=== PATIENT | female | born 1965 | race Caucasian/White ===

== ENCOUNTER 2016-03-12 11:34 | Emergency (ER) | payer OTHER ==
[~2016-03-12] VITALS: Ht 160 cm; Wt 88.7 kg
[~2016-03-12 11:34] MED LIST: ASPI81TA57 PO; FURO-85 PO; PRT/40 PO
[2016-03-12 11:40] VITALS: TEMP 36.9; Ht 160 cm; Wt 88.7 kg
[2016-03-12] MEDS ORDERED: PRLSR20 PO (11:47)
[2016-03-12] MEDS ORDERED: NORT10CA4 PO (11:48)
[2016-03-12 12:40] LABS: BASO % 0.4 %; BASO ABS # 0.03 K/uL (0-0.2); COMPLETE YES; EOS % 2.2 %; HEMATOCRIT 44.5 % (37-47); IG% 0.1 %; LYMPH ABS # 2.23 K/uL (1.2-3.4); MEAN CORPUSCULAR HEMOGLOBIN 31.2 pg (25-34); MEAN CORPUSCULAR HGB CONC 35.1 g/dl (32-36); MEAN PLATELET VOLUME 10.5 fL (7.4-10.4); MONO % 5.7 %; NEUT % 61.6 %; PLATELET COUNT 225 K/uL (130-400); WHITE BLOOD COUNT 7.43 K/uL (4.8-10.8)
[2016-03-12] MEDS ORDERED: SODIUM CHLORIDE 0.9% 1000ML 1,000 ML IV STA ×3 (12:44→15:38)
[2016-03-12] MEDS ORDERED: PROMETHAZINE HCL INJ 25 MG in SODIUM CHLORIDE 0.9% 50ML 50 ML IV STA (12:44)
[2016-03-12] MEDS ORDERED: HYDROmorphone INJ 1 MG/ML SYR IV PRN (12:45)
[2016-03-12 12:57] LABS: BUN/CREATININE RATIO 20.3 (10-20); CALCIUM 9.4 mg/dl (8.5-10.1); CREATININE 0.87 mg/dl (0.60-1.20); POTASSIUM 3.5 mmol/L (3.5-5.1)
[2016-03-12] MEDS ORDERED: OPTIRAY 320 IV PRN (13:00)
--- NOTE | 2016-03-12 14:11 | DIAGNOSTIC IMAGING REPORT ---
CT SCAN OF THE ABDOMEN AND PELVIS WITH IV CONTRAST CLINICAL HISTORY: Lower abdominal pain. Vomiting and diarrhea. COMPARISON STUDY: Abdominal CT dated 11/26/2014, 05/10/2014, and 06/05/2012. TECHNIQUE: Following the IV administration of 92 cc of Optiray 320, CT scan of the abdomen and pelvis is performed from the lung bases to the proximal femora. Images are reviewed in the axial, sagittal, and coronal planes. IV contrast was administered without complication. Automated dose control exposure was utilized. CT DOSE: 1261.84 mGycm FINDINGS: Lung bases: The heart is normal in size and without pericardial effusion. Small calcified granulomas are noted at the lung bases. There is dependent atelectasis. No airspace consolidation or pleural effusion is seen. A 2 mm noncalcified nodule at the left lung base as seen on image #77. There are calcified mediastinal and hilar lymph nodes partially visualized. A tiny hiatal hernia is identified. Liver: The contrast-enhanced liver is normal in size, contour, and attenuation. There is mild central intrahepatic biliary ductal dilatation. A 7 mm low-attenuation lesion in the left lobe and a 11 mm low-attenuation lesion in the right lobe are unchanged from prior studies. These likely represent small hemangiomas but are incompletely characterized. The hepatic veins and portal veins are patent. Gallbladder: Surgically absent noting clips in the gallbladder fossa. Spleen: Normal in size and attenuation. Pancreas: Moderately atrophic. Adrenal glands: Unremarkable. Kidneys: The contrast enhanced kidneys demonstrate mild cortical atrophy and are without hydronephrosis. The kidneys enhance symmetrically. Abdominal vasculature: The abdominal aorta is normal in course and caliber noting moderate to advanced atherosclerotic calcification. Bowel: The small bowel and colon are normal in course and caliber. The appendix is not identified and reported surgically absent. Peritoneum: There is no intraperitoneal free air or abdominal ascites. There is a small fat-containing umbilical hernia. Lymphadenopathy: None. Pelvic viscera: The bladder is normal as visualized. The uterus is surgically absent. No adnexal lesion is seen. Skeletal structures: The skeletal structures are osteopenic. There is mild lumbosacral spondylosis. No lytic or blastic lesions are seen. Mild sclerotic change is seen involving the sacroiliac joints. IMPRESSION: 1. There are no acute infectious or inflammatory findings in the abdomen or pelvis. 2. Additional findings as above. Electronically signed by: Tesfaye Brannon M.D. 03/12/2016 2:09 PM Dictated Date/Time: 03/12/2016 2:00 PM
[2016-03-12] MEDS ORDERED: RMR15 PO (14:12)
[2016-03-12] MEDS ORDERED: HYDR25CA PO (14:12)
[2016-03-12] MEDS ORDERED: GABA-113 PO (14:12)
[2016-03-12] MEDS ORDERED: QUET1TAB32 PO (14:12)
[2016-03-12] MEDS ORDERED: TOPI100T34 PO (15:38)
[2016-03-12] MEDS ORDERED: VENL150T33 PO (15:38)
[2016-03-12] MEDS ORDERED: QUET1TAB11 PO (15:38)
[2016-03-12] MEDS ORDERED: TOPI50TA16 PO (15:59)
[2016-03-12 16:01] LABS: URINE APPEARANCE CLEAR (CLEAR); URINE BILIRUBIN NEG (NEG); URINE COLOR YELLOW; URINE NITRITE NEG (NEG); URINE SPECIFIC GRAVITY > 1.045 (1.000-1.030); UROBILINOGEN NEG (NEG); ZZUR CULT IF INDIC CLEAN CATCH NO
[2016-03-12 16:04] LABS: MANUAL MICROSCOPIC REQUIRED? NO; REVIEW REQ? NO
[2016-03-12] MEDS ORDERED: OXYCODONE IR HOME PACK PO ONE (17:45)
[2016-03-12] MEDS ORDERED: PHENERGAN 25MG HOMEPACK PO ONE (17:45)
[2016-03-12 18:31] VITALS: BP 143/100; PULSE 69; O2SAT 95
[2016-03-12] MEDS ORDERED: BUSP15TA70 PO (19:18)
[2016-03-12] MEDS ORDERED: IPRASOL4 INH (19:25)
[2016-03-12] MEDS ORDERED: TRAZ50TA35 PO (19:50)
[2016-03-12] MEDS ORDERED: MULT-506 PO (19:51)
[2016-03-12] MEDS ORDERED: IPRA1AER2 INH (20:20)
[2016-03-12] MEDS ORDERED: ATOR-22 PO (20:20)
[2016-03-12] MEDS ORDERED: ALPR-411 PO ×2 (20:33)
--- NOTE | 2016-03-12 20:50 | EMERGENCY ROOM VISIT NOTE ---
History Report prepared by Cristobalibblair: Darcy Cole Under the Supervision of: Dr. Michael Miguel M.D. First contact with patient: 12:12 Chief Complaint: ABDOMINAL PAIN Stated Complaint: STOMACH PAIN AND GENITALS History of Present Illness The patient is a 51 year old female who presents to the Emergency Room with complaints of persistent diffuse abdominal pain that began this morning. Her discomfort is an 8/10 in severity. Her pain is worst in the lower abdomen just above her pubic bone. The patient notes that she developed nausea, vomiting, and diarrhea 3 days ago. This morning when she got up, she had difficulty walking and sitting due to her abdominal pain. She denies any unusual colored bowel movements. The patient has been able to eat some crackers since Tuesday but has not been able to keep any other food down, as her GI symptoms have yet to resolve. Currently, she complains of feeling weak. She has a history of a hysterectomy, cholecystectomy, and appendectomy. The patient was recently on a Z -Andres and Clindamycin for a dental abscess. The patient called her doctor, Dr. Humphreys, who referred her to the ER. Pt denies LOC, headache, fevers, chills, diaphoresis, visual changes, neck pain, chest pain, breathing difficulties, back pain, melena, hematochezia, urinary symptoms, numbness, lymphadenopathy, rash, or other complaints. Source of History: patient Onset: this morning Position: abdomen Timing: other (persistent) Modifying Factors (Worsening): other (walking, sitting up) Associated Symptoms: + diarrhea, + nausea, + vomiting, + weakness Review of Systems See HPI for pertinent positives and negatives. A total of ten systems were reviewed and were otherwise negative. Past Medical & Surgical Medical Problems: (1) Anxiety (2) COPD, moderate (3) Depression (4) Dyslipidemia (5) HTN (hypertension) (6) IBS (irritable bowel syndrome) Surgical Problems: (1) S/P appendectomy (2) S/P cholecystectomy (3) S/P laparoscopy (4) S/P total hysterectomy and BSO (bilateral salpingo-oophorectomy) Family History Diabetes mellitus FH: heart disease Social History Smoking Status: Current Every Day Smoker Alcohol Use: none Drug Use: marijuana Marital Status: single Housing Status: lives alone Occupation Status: unemployed Current/Historical Medications Scheduled Alprazolam (Xanax), 0.5 MG PO HS Alprazolam (Xanax), 0.5 MG PO PRN UD Atorvastatin (Lipitor), 10 MG PO DAILY Buspirone Hcl (Buspar), 20 MG PO TID Calcium Carbonate-Cholecalcife (Caltrate 600+D), 1 TAB PO DAILY Gabapentin (Neurontin), 300 MG PO BID Hydroxyzine Pamoate (Vistaril), 1 CAP PO HS Lisinopril (Prinivil), 5 MG PO DAILY Mirtazapine (Mirtazapine), Unknown Dose PO HS Multivitamin (Multivitamin), 1 TAB PO DAILY Nortriptyline HCl (Nortriptyline HCl), 10 MG PO DAILY Omeprazole (Prilosec), 40 MG PO DAILY Quetiapine Fumarate (Seroquel), 300 MG PO HS Quetiapine Fumarate (Seroquel), 50 MG PO HS Topiramate (Topamax), 100 MG PO BID Topiramate (Topamax), 50 MG PO BID Trazodone Hcl (Trazodone), 100 MG PO HS Venlafaxine Hcl (Venlafaxine Hcl Er), 150 MG PO DAILY Scheduled PRN Ipratropium-Albuterol (Duoneb), 1 TREATMENT INH QID PRN for SOB/Wheezing Ipratropium-Albuterol (Combivent Respimat), 1 PUFFS INH QID PRN for SOB/Wheezing Allergies Coded Allergies: Amoxicillin (Verified Allergy, Severe, unknown, 10/06/15) Clavulanic Acid (Verified Allergy, Severe, unknown, 10/06/15) Tetracyclines (Verified Allergy, Unknown, DOXYCYCLINE, 10/06/15) Morphine (Verified Adverse Reaction, Unknown, stomach cramps, 10/06/15) Physical Exam Vital Signs Date Time Temp Pulse Resp B/P Pulse Ox O2 Delivery O2 Flow Rate FiO2 03/12/16 18:31 69 17 143/100 95 03/12/16 18:14 69 17 143/100 95 Room Air 03/12/16 16:26 79 18 153/92 97 Room Air 03/12/16 14:24 70 131/93 97 Room Air 03/12/16 13:07 86 16 134/87 97 Room Air 03/12/16 11:40 36.9 94 18 159/128 97 Room Air Physical Exam GENERAL: Awake, alert, uncomfortable appearing, in no acute distress HEAD: Normocephalic, atraumatic. No edema. EYES: Normal conjunctiva. Sclera non-icteric. OROPHARYNX: Dry mucous membranes; otherwise, lips, tongue, and mucosa unremarkable. No erythema or exudate. NECK: Supple. No nuchal rigidity. FROM. No adenopathy. RESPIRATORY: CTA bilaterally. No wheezes rales or rhonchi. CARDIAC: Borderline tachycardic rate, normal rhythm. ABDOMEN: Soft, non distended. Diffuse abdominal tenderness to palpation but worse in the lower quadrants. No rebound or guarding. MUSCULOSKELETAL: Atraumatic. No edema. NEURO: Normal sensorium. SKIN: No rash or jaundice noted Medical Decision & Procedures ER Provider Diagnostic Interpretation: Radiology results as stated below per my review and radiologist interpretation. CT SCAN OF THE ABDOMEN AND PELVIS WITH IV CONTRAST CLINICAL HISTORY: Lower abdominal pain. Vomiting and diarrhea. COMPARISON STUDY: Abdominal CT dated 11/26/2014, 05/10/2014, and 06/05/2012. TECHNIQUE: Following the IV administration of 92 cc of Optiray 320, CT scan of the abdomen and pelvis is performed from the lung bases to the proximal femora. Images are reviewed in the axial, sagittal, and coronal planes. IV contrast was administered without complication. Automated dose control exposure was utilized. CT DOSE: 1261.84 mGycm FINDINGS: Lung bases: The heart is normal in size and without pericardial effusion. Small calcified granulomas are noted at the lung bases. There is dependent atelectasis. No airspace consolidation or pleural effusion is seen. A 2 mm noncalcified nodule at the left lung base as seen on image #77. There are calcified mediastinal and hilar lymph nodes partially visualized. A tiny hiatal hernia is identified. Liver: The contrast-enhanced liver is normal in size, contour, and attenuation. There is mild central intrahepatic biliary ductal dilatation. A 7 mm low-attenuation lesion in the left lobe and a 11 mm low-attenuation lesion in the right lobe are unchanged from prior studies. These likely represent small hemangiomas but are incompletely characterized. The hepatic veins and portal veins are patent. Gallbladder: Surgically absent noting clips in the gallbladder fossa. Spleen: Normal in size and attenuation. Pancreas: Moderately atrophic. Adrenal glands: Unremarkable. Kidneys: The contrast enhanced kidneys demonstrate mild cortical atrophy and are without hydronephrosis. The kidneys enhance symmetrically. Abdominal vasculature: The abdominal aorta is normal in course and caliber noting moderate to advanced atherosclerotic calcification. Bowel: The small bowel and colon are normal in course and caliber. The appendix is not identified and reported surgically absent. Peritoneum: There is no intraperitoneal free air or abdominal ascites. There is a small fat-containing umbilical hernia. Lymphadenopathy: None. Pelvic viscera: The bladder is normal as visualized. The uterus is surgically absent. No adnexal lesion is seen. Skeletal structures: The skeletal structures are osteopenic. There is mild lumbosacral spondylosis. No lytic or blastic lesions are seen. Mild sclerotic change is seen involving the sacroiliac joints. IMPRESSION: 1. There are no acute infectious or inflammatory findings in the abdomen or pelvis. 2. Additional findings as above. Electronically signed by: Tesfaye Brannon M.D. 03/12/2016 2:09 PM Dictated Date/Time: 03/12/2016 2:00 PM Laboratory Results 03/12/16 12:05 Red Blood Count 5.00, Mean Corpuscular Volume 89.0, Mean Corpuscular Hemoglobin 31.2, Mean Corpuscular Hemoglobin Concent 35.1, Mean Platelet Volume 10.5, Neutrophils (%) (Auto) 61.6, Lymphocytes (%) (Auto) 30.0, Monocytes (%) (Auto) 5.7, Eosinophils (%) (Auto) 2.2, Basophils (%) (Auto) 0.4, Neutrophils # (Auto) 4.58, Lymphocytes # (Auto) 2.23, Monocytes # (Auto) 0.42, Eosinophils # (Auto) 0.16, Basophils # (Auto) 0.03 03/12/16 12:05 Test 03/12/16 00:00 03/12/16 12:05 Urine Color YELLOW Urine Appearance CLEAR (CLEAR) Urine pH 6.0 (4.5-7.5) Urine Specific Nordman > 1.045 (1.000-1.030) Urine Protein NEG (NEG) Urine Glucose (UA) NEG (NEG) Urine Ketones NEG (NEG) Urine Occult Blood NEG (NEG) Urine Nitrite NEG (NEG) Urine Bilirubin NEG (NEG) Urine Urobilinogen NEG (NEG) Urine Leukocyte Esterase NEG (NEG) Urine Test NEG (NEG) White Blood Count 7.43 K/uL (4.8-10.8) Red Blood Count 5.00 M/uL (4.2-5.4) Hemoglobin 15.6 g/dL (12.0-16.0) Hematocrit 44.5 % (37-47) Mean Corpuscular Volume 89.0 fL (80-100) Mean Corpuscular Hemoglobin 31.2 pg (25-34) Mean Corpuscular Hemoglobin Concent 35.1 g/dl (32-36) Platelet Count 225 K/uL (130-400) Mean Platelet Volume 10.5 fL (7.4-10.4) Neutrophils (%) (Auto) 61.6 % Lymphocytes (%) (Auto) 30.0 % Monocytes (%) (Auto) 5.7 % Eosinophils (%) (Auto) 2.2 % Basophils (%) (Auto) 0.4 % Neutrophils # (Auto) 4.58 K/uL (1.4-6.5) Lymphocytes # (Auto) 2.23 K/uL (1.2-3.4) Monocytes # (Auto) 0.42 K/uL (0.11-0.59) Eosinophils # (Auto) 0.16 K/uL (0-0.5) Basophils # (Auto) 0.03 K/uL (0-0.2) RDW Standard Deviation 43.6 fL (36.4-46.3) RDW Coefficient of Variation 13.4 % (11.5-14.5) Immature Granulocyte % (Auto) 0.1 % Immature Granulocyte # (Auto) 0.01 K/uL (0.00-0.02) Anion Gap 10.0 mmol/L (3-11) Est Creatinine Clear Calc Drug Dose 80.8 ml/min Estimated GFR () 89.4 Estimated GFR (Non- 77.1 BUN/Creatinine Ratio 20.3 (10-20) Calcium Level 9.4 mg/dl (8.5-10.1) Total Bilirubin 0.6 mg/dl (0.2-1) Direct Bilirubin 0.1 mg/dl (0-0.2) Aspartate Amino Transf (AST/SGOT) 35 U/L (15-37) Alanine Aminotransferase (ALT/SGPT) 92 U/L (12-78) Alkaline Phosphatase 107 U/L (45-117) Total Protein 7.5 gm/dl (6.4-8.2) Albumin 3.8 gm/dl (3.4-5.0) Lipase 164 U/L (73-393) Date/Time Source Procedure Growth Status 03/12/16 13:15 Stool C.difficile Toxin B Gene (PCR) - Final No C. difficile toxin B gene detected Complete Laboratory results reviewed by me Medications Administered Medications (Trade) Dose Ordered Sig/Alvarez Route Start Time Stop Time Status Last Admin Dose Admin Promethazine HCl 25 mg/Sodium Chloride 51 ml @ 204 mls/hr NOW STAT IV 03/12/16 12:44 03/12/16 12:58 DC 03/12/16 13:30 204 MLS/HR Sodium Chloride 1,000 ml @ 999 mls/hr Q1H1M STAT IV 03/12/16 12:44 03/12/16 13:44 DC 03/12/16 13:06 999 MLS/HR Sodium Chloride (Nss 1000ml) 1,000 ml @ 125 mls/hr Q8H STAT IV 03/12/16 12:44 03/12/16 18:43 DC 03/12/16 15:04 125 MLS/HR Hydromorphone HCl 1 mg 1 mg Q15M PRN IV 03/12/16 12:45 03/12/16 18:43 DC 03/12/16 13:07 1 MG Sodium Chloride (Nss 1000ml) 1,000 ml @ 999 mls/hr Q1H1M STAT IV 03/12/16 15:38 03/12/16 16:38 DC 03/12/16 15:50 999 MLS/HR Oxycodone HCl (Roxicodone Immediate Rel 5MG Home Pack) 1 homepack UD ONCE PO 03/12/16 17:45 03/12/16 17:46 DC 03/12/16 17:52 1 HOMEPACK Promethazine HCl (Phenergan 25MG Home Pack) 1 homepack UD ONCE PO 03/12/16 17:45 03/12/16 17:46 DC 03/12/16 17:52 1 HOMEPACK ED Course 1243: The patient was evaluated in room A4B. A complete history and physical exam was performed. 1244: Ordered NSS 1000 ml @ 125 mls/hr IV, NSS 1000 ml @ 999 mls/hr IV, Promethazine HCl 25 mg/NSS 51 ml @ 204 mls/hr IV, Dilaudid Inj 1 mg IV. 1538: Ordered NSS 1000 ml @ 999 mls/hr IV. 1540: I reassessed the patient. She was feeling better. 1725: I reevaluated the patient. She was resting comfortably. Discussed results and discharge instructions: She verbalized understanding and agreement. The patient is ready for discharge. 1745: Ordered Promethazine HCl 1 homepack PO, Oxycodone HCl 1 homepack PO. Medical Decision Triage Nursing notes reviewed. The patient's presentation and history were concerning for nausea, vomiting, diarrhea and abdominal pain. Etiologies such as gastroenteritis, food borne illness, infections, obstruction , pancreatitis, appendicitis, diverticulitis, inflammatory bowel disease, GI bleed, biliary pathology, toxicologic as well as others were entertained. The patient was evaluated. She had lower abdominal discomfort. In the stated complaints of pain in the stomach and genitals. The patient specifically met in the suprapubic area. She has a history of hysterectomy, appendectomy and cholecystectomy. The patient was treated with IV Phenergan, normal saline, and Dilaudid. On reassessment she felt better. She still having difficulty obtaining a urine sample so the patient was given additional normal saline. The patient's CBC was unremarkable. Chem panel revealed dehydration. LFTs and lipase were unremarkable. Slight elevation of AST. CT was negative. C. difficile testing was negative. Stool culture is pending. Urinalysis was done and was unremarkable. I discussed the findings with the patient. On final assessment she was doing much better. Conservative management was discussed and the patient was in agreement. She felt comfortable with discharge and close outpatient follow-up. I suspect the patient has a gastroenteritis-like illness with some dehydration and can follow-up safely as an outpatient. By the evaluation outlined above other emergent etiologies such as those listed in the differential, as well as others, were deemed relatively unlikely. The patient was informed about the findings as listed above. All questions were answered and she was pleased with the treatment. Return instructions were outlined and the patient was discharged in stable condition. The patient was referred to her PCP for follow-up for a recheck of the current condition. The chart was completed utilizing [employer] voice recognition software. Grammatical errors, random word insertions, pronoun errors, and incomplete sentences are an occasional consequence of this system due to software limitations, ambient noise, and hardware issues. Any formal questions or concerns about the content, text, or information contained within the body of this dictation should be directly addressed to the physician for clarification. [place] Drug Monitoring Program Search Results: patient reviewed within database, no issues identified Impression Primary Impression: Nausea, vomiting, and diarrhea Additional Impressions: Lower abdominal pain Dehydration Scribe Attestation The scribe's documentation has been prepared under my direction and personally reviewed by me in its entirety. I confirm that the note above accurately reflects all work, treatment, procedures, and medical decision making performed by me. Departure Information Dispostion Home / Self-Care Referrals Nestor Blanco M.D. (PCP) Forms Call Back Authorization, HOME CARE DOCUMENTATION FORM, IMPORTANT VISIT INFORMATION Patient Instructions My [facility] Additional Instructions ABDOMINAL PAIN INSTRUCTIONS: DO NOT drive, drink alcohol, operate machinery, or perform dangerous activities today. You were given medications in the ER that can affect your ability to safely function or operate a vehicle. Oxycodone (OxyIR) 5mg: Take 1-2 pills every four hours for breakthrough pain. Avoid alcohol, operating machinery or dangerous equipment, working on ladders or roofs, DRIVING, or situations where being under the influence may be dangerous. It is recommended to use an [id number] stool softener such as Colace, 100mg twice daily while taking this medication to avoid constipation. Ibuprofen(Motrin, Advil) may be used for fever or pain. Use 600mg every six hours as needed. Take with food. Avoid using more than 2400mg in a 24 hour period. Do not use 2400mg per day for more than three consecutive days without physician direction. Prolonged inappropriate use can lead to stomach upset or ulcers. (AND/OR) Acetaminophen(Tylenol) may be used for fever or pain. Use 1000mg every six hours as needed. Avoid using more than 4000mg in a 24 hour period. Phenergan(promethazine) tablets 25mg: Take one every six hours as needed for nausea. Avoid alcohol, operating machinery or dangerous equipment, working on ladders or roofs, DRIVING, or situations where being under the influence may be dangerous. Rest and drink plenty of fluids as tolerated. Slow sips of water or sports drinks are recommended instead of large amounts all at once. Continue current medications. Once your stomach is settled start with a clear liquid diet (jello, soup broth, etc.) and then advance as tolerated. You should avoid full, heavy meals for about 24 hrs from the time your symptoms resolved. Return to the ER immediately for worsening or persistent abdominal pain, vomiting, fevers, chest pains, difficulty breathing, black or bloody stools, worsening of your condition, or as needed. Follow up with your primary physician in 3 days for a recheck of your current condition. Problem Qualifiers
[2016-03-12] MEDS ORDERED: LISI-729 PO (21:30)
[2016-03-12] MEDS ORDERED: CALC-354 PO (22:21)
== END 2016-03-12 18:27 | disposition home or self-care (01) ==
LOC: C.EDB 11:38 → C.EDA 18:27
DX: R11.2 Nausea with vomiting, unspecified (principal); R19.7 Diarrhea, unspecified; R10.30 Lower abdominal pain, unspecified; E86.0 Dehydration; R91.1 Solitary pulmonary nodule; K44.9 Diaphragmatic hernia without obstruction or gangrene; K42.9 Umbilical hernia without obstruction or gangrene; J44.9 Chronic obstructive pulmonary disease, unspecified; F32.9 Major depressive disorder, single episode, unspecified; E78.5 Hyperlipidemia, unspecified; I10 Essential (primary) hypertension; M47.817 Spondylosis without myelopathy or radiculopathy, lumbosacral region; F17.200 Nicotine dependence, unspecified, uncomplicated; Z83.3 Family history of diabetes mellitus; Z82.49 Family history of ischemic heart disease and other diseases of the circulatory system

== ENCOUNTER 2016-12-28 18:11 | Emergency (ER) | payer OTHER ==
[~2016-12-28] VITALS: Ht 160 cm; Wt 94.0 kg
[~2016-12-28 18:11] MED LIST changes: +ALPR-411 PO; -ASPI81TA57 PO; +ATOR-22 PO; +BUSP15TA70 PO; +CALC-354 PO; -FURO-85 PO; +GABA-113 PO; +HYDR25CA PO; +IPRA1AER2 INH; +IPRASOL4 INH; +LISI-729 PO; +MULT-506 PO; +NORT10CA4 PO; +PRLSR20 PO; -PRT/40 PO; +QUET1TAB11 PO; +QUET1TAB32 PO; +RMR15 PO; +TOPI100T34 PO; +TOPI50TA16 PO; +TRAZ50TA35 PO; +VENL150T33 PO
[2016-12-28 18:15] VITALS: TEMP 37.1; Ht 160 cm; Wt 94.0 kg
[2016-12-28] MEDS: KETOROLAC TROMETHAMINE 60 MG/2 ML VIAL IM STA ×2 (18:29→20:22)
[2016-12-28] MEDS: ACETAMINOPHEN 500 MG TAB PO STA ×2 (18:29→20:20)
[2016-12-28] MEDS: TRAMADOL HCL 50 MG TAB PO STA ×2 (18:29→20:21)
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
--- NOTE | 2016-12-28 19:27 | DIAGNOSTIC IMAGING REPORT ---
R KNEE 4 OR MORE VIEWS CLINICAL HISTORY: Medial right knee pain. COMPARISON: Right knee radiographs April 02, 2015. FINDINGS: Alignment of the right knee is anatomic. No acute fracture or joint effusion is identified. There is mild osteophytosis within the right knee with preserved joint spaces. IMPRESSION: 1. No acute fracture or joint effusion of the right knee. 2. Mild osteoarthritis of the right knee. Electronically signed by: Jose Raul Cardona M.D. 12/28/2016 7:26 PM Dictated Date/Time: 12/28/2016 7:25 PM
[2016-12-28 20:43] VITALS: BP 138/103; PULSE 77; O2SAT 96
== END 2016-12-28 20:44 | disposition home or self-care (01) ==
LOC: C.EDB 18:12 → C.EDC 20:44
DX: M79.604 Pain in right leg (principal); M79.605 Pain in left leg; Z71.6 Tobacco abuse counseling; X50.0XXA Overexertion from strenuous movement or load, initial encounter; F31.9 Bipolar disorder, unspecified; F60.9 Personality disorder, unspecified; F41.9 Anxiety disorder, unspecified; J44.9 Chronic obstructive pulmonary disease, unspecified; E78.5 Hyperlipidemia, unspecified; I10 Essential (primary) hypertension; K58.9 Irritable bowel syndrome, unspecified; Z90.49 Acquired absence of other specified parts of digestive tract; Z90.710 Acquired absence of both cervix and uterus; G89.29 Other chronic pain; Z91.81 History of falling; F17.210 Nicotine dependence, cigarettes, uncomplicated; Z83.3 Family history of diabetes mellitus; F12.10 Cannabis abuse, uncomplicated; Z79.899 Other long term (current) drug therapy

== ENCOUNTER 2017-03-28 15:01 | Emergency (ER) | payer OTHER ==
[~2017-03-28] VITALS: Ht 371.6 cm; Wt 98.3 kg
[~2017-03-28 15:01] MED LIST changes: +EFF75 PO; -QUET1TAB11 PO; -QUET1TAB32 PO; +TOPI100T20 PO; -TOPI100T34 PO
[2017-03-28 15:05] VITALS: BP 139/96; PULSE 88; TEMP 36.8; O2SAT 95; Ht 371.6 cm; Wt 98.3 kg
== END 2017-03-28 15:58 | disposition left against medical advice (07) ==
LOC: C.EDB 15:02
DX: R07.9 Chest pain, unspecified (principal)

== ENCOUNTER 2017-06-09 20:25 | Emergency (ER) | payer OTHER ==
[~2017-06-09] VITALS: Ht 160 cm; Wt 95.2 kg
[~2017-06-09 20:25] MED LIST changes: -ALPR-411 PO; -CALC-354 PO
[2017-06-09 20:28] VITALS: TEMP 37.6; Ht 160 cm; Wt 95.2 kg
[2017-06-09] MEDS ORDERED: ALPR-411 PO (20:33)
[2017-06-09] MEDS ORDERED: OXYCODONE HCL IR 5 MG TAB (IMMEDIATE RELEASE) PO STA (20:42)
[2017-06-09] MEDS ORDERED: FUROSEMIDE 40 MG TAB PO ONE (20:45)
--- NOTE | 2017-06-09 21:01 | EMERGENCY ROOM VISIT NOTE ---
History Report prepared by Malorie: Alis Durham Under the Supervision of: Dr. Iasbel Laguna M.D. First contact with patient: 20:32 Chief Complaint: EDEMA TO EXTREMITY Stated Complaint: RETAINING FLUID/VERY PAINFUL, LIKE NEEDLES History of Present Illness The patient is a 52 year old female who presents to the Emergency Room with complaints of persistent bilateral ankle swelling for four days. She states that she went for a walk at that time and was wearing sneakers. She notes that her ankles began to swell and she developed a pain sensation described as pins and needles. She notes that she does take Lasix for occasional leg swelling and fluid retention, though she states she has never been in pain in her legs before. She does have compression socks, though she is not wearing them. She notes that she cannot bend her knee. She notes that she took 40 mg of Lasix today, though no relief. She was seen by her PCP and was prescribed pain medication, though no relief. She denies any history of diabetes. She has a history of HTN, HLD, and bipolar disorder. She is a smoker. Source of History: patient Onset: four days Position: ankle (bilateral) Quality: other (swelling) Timing: other (persistent) Note: Notes pain in ankles feels like pins and needles. Review of Systems See HPI for pertinent positives & negatives. A total of 10 systems reviewed and were otherwise negative. Past Medical & Surgical Medical Problems: (1) Anxiety (2) COPD, moderate (3) Depression (4) Dyslipidemia (5) HTN (hypertension) (6) IBS (irritable bowel syndrome) Surgical Problems: (1) S/P appendectomy (2) S/P cholecystectomy (3) S/P laparoscopy (4) S/P total hysterectomy and BSO (bilateral salpingo-oophorectomy) Family History Diabetes mellitus FH: heart disease Social History Smoking Status: Current Every Day Smoker Alcohol Use: none Drug Use: marijuana Marital Status: Housing Status: lives alone Occupation Status: disabled Current/Historical Medications Scheduled Alprazolam (Xanax), 0.5 MG PO HS Atorvastatin (Lipitor), 10 MG PO QPM Buspirone HCl (Buspirone HCl), 20 MG PO BID Calcium Carbonate-Cholecalcife (Caltrate 600+D), 1 TAB PO DAILY Gabapentin (Gabapentin), 800 MG PO TID Hydroxyzine Pamoate (Vistaril), 1 CAP PO HS Meloxicam (Meloxicam), 15 MG PO DAILY Metoprolol Succinate (Metoprolol Succinate ER), 12.5 MG PO DAILY Mirtazapine (Remeron), 30 MG PO HS Nortriptyline HCl (Nortriptyline HCl), 10 MG PO DAILY Omeprazole (Prilosec), 40 MG PO DAILY Topiramate (Topamax), 100 MG PO BID Trazodone HCl (Trazodone HCl), 150 MG PO HS Venlafaxine Hcl (Venlafaxine Hcl Er), 150 MG PO DAILY Venlafaxine Hcl (Effexor), 1 TAB PO noon Scheduled PRN Ipratropium-Albuterol (Duoneb), 1 TREATMENT INH QID PRN for SOB/Wheezing Ipratropium-Albuterol (Combivent Respimat), 1 PUFFS INH QID PRN for SOB/Wheezing Allergies Coded Allergies: Amoxicillin (Verified Allergy, Severe, unknown, 10/06/15) Clavulanic Acid (Verified Allergy, Severe, unknown, 10/06/15) Tetracyclines (Verified Allergy, Unknown, DOXYCYCLINE, 10/06/15) Morphine (Verified Adverse Reaction, Unknown, stomach cramps, 10/06/15) Physical Exam Vital Signs Date Time Temp Pulse Resp B/P (MAP) Pulse Ox O2 Delivery O2 Flow Rate FiO2 06/09/17 22:36 95 20 159/98 96 06/09/17 20:28 37.6 99 18 130/80 97 Room Air Physical Exam Vital signs reviewed. General: Well-appearing, in no significant distress. HEENT: No scleral icterus, PERRLA, neck supple. Atraumatic. Cardiovascular: Regular rate and rhythm, no extra sounds. Pulmonary: Clear to auscultation bilaterally, normal work of breathing. Abdomen: Soft, nontender, nondistended, positive bowel sounds. Musculoskeletal: Atraumatic, 1+ pitting edema to the LE bilaterally. Pain to palpation of the feet bilaterally. Neurologic: Patient awake alert and oriented x 3, full strength in all 4 extremities. Cranial nerves 2 through 12 grossly intact. Skin: Warm, dry, no rash Medical Decision & Procedures ER Provider Diagnostic Interpretation: Radiology results as stated below per my review and radiologist interpretation: VENOUS DOPPLER LWR EXT BILA CLINICAL HISTORY: 52 years-old Female presenting with BLE edema, pain. TECHNIQUE: Real-time grayscale and color and spectral Doppler ultrasound imaging of the veins of the bilateral lower extremities was performed. Compression and augmentation were also utilized. COMPARISON: 06/30/2015. FINDINGS: Right: Common femoral vein: Patent. Greater saphenous vein: Patent. Deep femoral vein: Patent. Femoral vein: Patent. Popliteal vein: Patent. Calf veins: Patent. Left: Common femoral vein: Patent. Greater saphenous vein: Patent. Deep femoral vein: Patent. Femoral vein: Patent. Popliteal vein: Patent. Calf veins: Patent. Other: None. IMPRESSION: No evidence of deep venous thrombosis. Electronically signed by: Nestor Nolasco M.D. 06/09/2017 9:36 PM Dictated Date/Time: 06/09/2017 9:36 PM Medications Administered Medications (Trade) Dose Ordered Sig/Alvarez Route Start Time Stop Time Status Last Admin Dose Admin Furosemide (Lasix Tab) 40 mg NOW ONCE PO 06/09/17 20:45 06/09/17 20:46 DC 06/09/17 20:58 40 MG Oxycodone HCl (Roxicodone Immediate Rel Tab) 5 mg NOW STAT PO 06/09/17 20:42 06/09/17 20:45 DC 06/09/17 20:59 5 MG Oxycodone HCl (Roxicodone Immediate Rel 5MG Home Pack) 1 homepack UD ONCE PO 06/09/17 22:30 06/09/17 22:31 DC 06/09/17 22:29 1 HOMEPACK ED Course 2039: Past medical records reviewed. The patient was evaluated in room C1B. A complete history and physical examination was performed. 2041: Ordered Oxycodone 5 mg PO 2044: Ordered Lasix 40 mg PO 0: I reassessed the patient at this time. The patient states she has chronic neuropathy. She is expected to have an ablation. I discussed the results and treatment plan with the patient. I answered all pertaining questions that she had. She expressed understanding and verbalized agreement. The patient will be discharged home. 2229: Ordered Oxycodone 1 homepack PO Medical Decision Differential diagnosis: Etiologies such as fracture, dislocation, neurovascular compromise, compartment syndrome, soft tissue injury, as well as others were entertained. This patient was evaluated and appeared to be in no significant distress. Patient has some pain to palpation of the bilateral lower extremities, particularly when walking. Initially she complains of a new pain that began after a 3 mile walk 4 days ago. The patient had Dopplers of the bilateral lower extremities and are negative. She was given 40 mg of Lasix and did begin diuresis. She was given 5 mg of p.o. OxyIR. On my reevaluation, the patient was ambulating back from the bathroom to her bed. She asked for additional pain medication. Patient explained that this is pain she has experienced before , a different history than elicited initially. Patient states she has been evaluated by pain management who has recommended nerve ablation. She is not willing to "sacrifice quality of life" to undergo this procedure. I did attempt to explain that this procedure is designed to increase her quality of life not take away from it. She was referred back to pain management and her primary care physician for further discussion. Patient takes pain medication chronically. A prescription was not provided for additional pain medication however she was given an OxyIR home pack. Patient was discharged in the care of her family and will return to the ER for worsening of symptoms or any medical concerns. Medication Reconcilliation Current Medication List: was personally reviewed by me Blood Pressure Screening Patient's blood pressure: Elevated blood pressure Blood pressure disposition: Elevated BP felt to be situational Impression Primary Impression: Neuropathy Additional Impression: Dependent edema Scribe Attestation The scribe's documentation has been prepared under my direction and personally reviewed by me in its entirety. I confirm that the note above accurately reflects all work, treatment, procedures, and medical decision making performed by me. Departure Information Dispostion Home / Self-Care Referrals Nestor Blanco M.D. (PCP) Forms HOME CARE DOCUMENTATION FORM, IMPORTANT VISIT INFORMATION, WORK / SCHOOL INSTRUCTIONS Patient Instructions My [facility] Additional Instructions Diagnosis: Bilateral lower extremity pain, dependent edema OxyIR 5 mg 1 tablet 3 times daily as needed for severe pain. Continue your meloxicam as prescribed. Minimize the salt in your diet. Wear compression stockings and elevate her feet as much as possible. Return to the ER for worsening of symptoms or any medical concerns per Problem Qualifiers
[2017-06-09] MEDS ORDERED: ATOR10TA82 PO (21:04)
[2017-06-09] MEDS ORDERED: DSY/150 PO (21:04)
[2017-06-09] MEDS ORDERED: TPRSR/25 PO (21:04)
[2017-06-09] MEDS ORDERED: BSP/10 PO (21:04)
[2017-06-09] MEDS ORDERED: NRN800 PO (21:04)
[2017-06-09] MEDS ORDERED: MELO-83 PO (21:04)
[2017-06-09] MEDS ORDERED: MIRT30TA3 PO (21:08)
[2017-06-09] MEDS ORDERED: OMEP40CA41 PO (21:08)
[2017-06-09] MEDS ORDERED: TPM100 PO (21:08)
--- NOTE | 2017-06-09 21:38 | DIAGNOSTIC IMAGING REPORT ---
VENOUS DOPPLER LWR EXT BILA CLINICAL HISTORY: 52 years-old Female presenting with BLE edema, pain. TECHNIQUE: Real-time grayscale and color and spectral Doppler ultrasound imaging of the veins of the bilateral lower extremities was performed. Compression and augmentation were also utilized. COMPARISON: 06/30/2015. FINDINGS: Right: Common femoral vein: Patent. Greater saphenous vein: Patent. Deep femoral vein: Patent. Femoral vein: Patent. Popliteal vein: Patent. Calf veins: Patent. Left: Common femoral vein: Patent. Greater saphenous vein: Patent. Deep femoral vein: Patent. Femoral vein: Patent. Popliteal vein: Patent. Calf veins: Patent. Other: None. IMPRESSION: No evidence of deep venous thrombosis. Electronically signed by: Nestor Nolasco M.D. 06/09/2017 9:36 PM Dictated Date/Time: 06/09/2017 9:36 PM
[2017-06-09] MEDS ORDERED: CALC-354 PO (22:21)
[2017-06-09] MEDS ORDERED: OXYCODONE IR HOME PACK PO ONE (22:30)
[2017-06-09 22:36] VITALS: BP 159/98; PULSE 95; O2SAT 96
== END 2017-06-09 22:38 | disposition home or self-care (01) ==
LOC: C.EDB 20:26 → C.EDC 22:38
DX: G62.9 Polyneuropathy, unspecified (principal); R60.9 Edema, unspecified; F41.9 Anxiety disorder, unspecified; J44.9 Chronic obstructive pulmonary disease, unspecified; F32.9 Major depressive disorder, single episode, unspecified; E78.5 Hyperlipidemia, unspecified; I10 Essential (primary) hypertension; K58.9 Irritable bowel syndrome, unspecified; F17.200 Nicotine dependence, unspecified, uncomplicated; F12.90 Cannabis use, unspecified, uncomplicated; Z88.1 Allergy status to other antibiotic agents; Z88.8 Allergy status to other drugs, medicaments and biological substances; Z88.5 Allergy status to narcotic agent

== ENCOUNTER 2017-06-11 01:14 | Emergency (ER) | payer OTHER ==
[~2017-06-11] VITALS: Ht 160 cm; Wt 88.6 kg
[~2017-06-11 01:14] MED LIST changes: +ALPR-411 PO; -ATOR-22 PO; +ATOR10TA82 PO; +BSP/10 PO; -BUSP15TA70 PO; +CALC-354 PO; +DSY/150 PO; -GABA-113 PO; -LISI-729 PO; +MELO-83 PO; +MIRT30TA3 PO; -MULT-506 PO; +NRN800 PO; +OMEP40CA41 PO; -PRLSR20 PO; -RMR15 PO; -TOPI50TA16 PO; +TPRSR/25 PO; -TRAZ50TA35 PO
[2017-06-11 01:24] VITALS: TEMP 36.8; Ht 160 cm; Wt 88.6 kg
[2017-06-11] MEDS ORDERED: CAPSAICIN CR 0.075% 60 GM TUBE EXT STA (01:32)
[2017-06-11 01:39] VITALS: O2SAT 99
[2017-06-11 01:41] LABS: BASO % 0.6 %; BASO ABS # 0.05 K/uL (0-0.2); EOS % 4.8 %; EOS ABS # 0.42 K/uL (0-0.5); HEMATOCRIT 40.5 % (37-47); HEMOGLOBIN 13.8 g/dL (12.0-16.0); IG# 0.02 K/uL (0.00-0.02); LYMPH % 38.1 %; LYMPH ABS # 3.35 K/uL (1.2-3.4); MEAN CELL VOLUME 89.4 fL (80-100); MEAN CORPUSCULAR HEMOGLOBIN 30.5 pg (25-34); MEAN CORPUSCULAR HGB CONC 34.1 g/dl (32-36); MEAN PLATELET VOLUME 10.7 fL (7.4-10.4); MONO % 5.5 %; MONO ABS # 0.48 K/uL (0.11-0.59); NEUT % 50.8 %; NEUT ABS # 4.47 K/uL (1.4-6.5); PLATELET COUNT 167 K/uL (130-400); RED CELL DISTRIBUTION WIDTH SD 42.3 fL (36.4-46.3); WHITE BLOOD COUNT 8.79 K/uL (4.8-10.8)
[2017-06-11] MEDS ORDERED: QUET400T PO (01:57)
[2017-06-11] MEDS ORDERED: LORAZEPAM 2 MG/ML 1 ML VIAL IV STA (01:57)
[2017-06-11 01:58] LABS: ALBUMIN 3.5 gm/dl (3.4-5.0); ALT/SGPT 37 U/L (12-78); AST/SGOT 22 U/L (15-37); BLOOD UREA NITROGEN 10 mg/dl (7-18); CARBON DIOXIDE 28 mmol/L (21-32); CREATININE 1.05 mg/dl (0.60-1.20); GLUCOSE 81 mg/dl (70-99); LIPASE 86 U/L (73-393); POTASSIUM 3.1 mmol/L (3.5-5.1); SODIUM 140 mmol/L (136-145)
[2017-06-11 02:01] LABS: ALKALINE PHOSPHATASE 135 U/L (45-117); TOTAL PROTEIN 7.1 gm/dl (6.4-8.2)
[2017-06-11] MEDS ORDERED: LORAZEPAM 2 MG/ML 1 ML VIAL ONE (02:01)
[2017-06-11] MEDS ORDERED: POTASSIUM CHLORIDE 10 MEQ TABCR PO STA (02:03)
[2017-06-11] MEDS ORDERED: OPTIRAY 320 IV PRN (02:30)
--- NOTE | 2017-06-11 04:07 | EMERGENCY ROOM VISIT NOTE ---
History First contact with patient: 01:21 Chief Complaint: CHEST PAIN Stated Complaint: CHEST PAIN/BACK Nursing Triage Summary: Patient reports that at approx. [id number] this morning she started having chest pains and SOB. History of Present Illness The patient is a 52 year old female who presents to the Emergency Room with complaints of midsternal chest pain and shortness of breath for the past hour that started when she got into the car to go home after smoking marijuana and cigarettes with her friends. Patient states she smokes marijuana daily as she has chronic pain. Patient has COPD blood pressure and cholesterol. No prior history of blood clots or heart disease. No recent echo stress test. Patient describes the chest pain as aching, ranging in severity 10 out of 10 midsternal. Movement and palpation makes it worse nothing makes it better. Patient states she has had some chronic lower leg swelling. She is here the other day and had negative ultrasounds. She is appointment on Tuesday with the family care doctor for follow-up. Patient denies family history of heart disease. She states her cousin does have a history of DVTs. She has not personally had a blood clot in the past though. Patient is not on control. No recent travel. Patient denies exertional chest pain, abdominal pain, fever, chills, cough, congestion, diaphoresis, nausea, vomiting. Review of Systems An 10 system review of systems was completed with positives and pertinent negatives listed in the HPI. Past Medical/Surgical History Medical Problems: (1) Anxiety (2) COPD, moderate (3) Depression (4) Dyslipidemia (5) HTN (hypertension) (6) IBS (irritable bowel syndrome) Surgical Problems: (1) S/P appendectomy (2) S/P cholecystectomy (3) S/P laparoscopy (4) S/P total hysterectomy and BSO (bilateral salpingo-oophorectomy) Family History Diabetes mellitus FH: heart disease Social History Smoking Status: Current Every Day Smoker Alcohol Use: none Drug Use: marijuana Marital Status: Housing Status: lives alone Occupation Status: disabled Current/Historical Medications Scheduled Alprazolam (Xanax), 0.5 MG PO HS Atorvastatin (Lipitor), 10 MG PO QPM Buspirone HCl (Buspirone HCl), 20 MG PO BID Calcium Carbonate-Cholecalcife (Caltrate 600+D), 1 TAB PO DAILY Gabapentin (Gabapentin), 800 MG PO TID Hydroxyzine Pamoate (Vistaril), 1 CAP PO HS Meloxicam (Meloxicam), 15 MG PO DAILY Metoprolol Succinate (Metoprolol Succinate ER), 12.5 MG PO DAILY Mirtazapine (Remeron), 30 MG PO HS Nortriptyline HCl (Nortriptyline HCl), 10 MG PO DAILY Omeprazole (Prilosec), 40 MG PO DAILY Quetiapine Fumarate Xr (Seroquel Xr Tab), 400 MG PO DAILY Topiramate (Topamax), 100 MG PO BID Trazodone HCl (Trazodone HCl), 150 MG PO HS Venlafaxine Hcl (Venlafaxine Hcl Er), 150 MG PO DAILY Venlafaxine Hcl (Effexor), 1 TAB PO noon Scheduled PRN Ipratropium-Albuterol (Duoneb), 1 TREATMENT INH QID PRN for SOB/Wheezing Ipratropium-Albuterol (Combivent Respimat), 1 PUFFS INH QID PRN for SOB/Wheezing Physical Exam Vital Signs Date Time Temp Pulse Resp B/P (MAP) Pulse Ox O2 Delivery O2 Flow Rate FiO2 06/11/17 03:30 83 17 105/75 94 Room Air 06/11/17 02:42 82 16 132/95 94 Room Air 06/11/17 01:39 99 Room Air 06/11/17 01:27 91 06/11/17 01:24 96 Room Air 06/11/17 01:24 36.8 94 20 169/99 98 Room Air 06/11/17 01:24 96 Room Air Physical Exam VITALS: Vitals are noted on the nurse's note and reviewed by myself. Vital signs stable. GENERAL: Anxious appearing female, in no acute distress, nondiaphoretic, well- developed well-nourished. SKIN: The skin was without rashes, erythema, edema, or bruising. There is no tenting of the skin. Capillary reflex less than 2 seconds. HEAD: Normocephalic atraumatic. EARS: External auditory canals clear, tympanic membranes pearly mares without erythema or effusion bilaterally. EYES: Pupils equal round and reactive to light and accommodation. Conjunctivae without injection, sclerae without icterus. Extraocular movements intact. NOSE: Patent, turbinates without inflammation or discharge. No sinus tenderness. MOUTH: Mucous membranes moist. Pharynx without erythema or exudate. Uvula midline. Airway patent. Tongue does not deviate. NECK: Supple without nuchal rigidity. No lymphadenopathy. No thyromegaly. Cervical spine is nontender. No JVD. HEART: Regular rate and rhythm, midsternal chest tender to palpation without rash LUNGS: Clear to auscultation bilaterally without wheezes, rales or rhonchi. No retractions or accessory muscle use. ABDOMEN: Positive bowel sounds x 4. Normal tympanic percussion. Soft, nontender, without masses or organomegaly. Dennison sign negative. No guarding or rebound tenderness. No CVA tenderness MUSCULOSKELETAL: No muscle atrophy, erythema, or edema noted. NEURO: Patient was alert and oriented to person place and time. Normal sensation to light and sharp touch. No focal neurological deficits. Medical Decision & Procedures Laboratory Results 06/11/17 01:30 Red Blood Count 4.53, Mean Corpuscular Volume 89.4, Mean Corpuscular Hemoglobin 30.5, Mean Corpuscular Hemoglobin Concent 34.1, Mean Platelet Volume 10.7, Neutrophils (%) (Auto) 50.8, Lymphocytes (%) (Auto) 38.1, Monocytes (%) (Auto) 5.5, Eosinophils (%) (Auto) 4.8, Basophils (%) (Auto) 0.6, Neutrophils # (Auto) 4.47, Lymphocytes # (Auto) 3.35, Monocytes # (Auto) 0.48, Eosinophils # (Auto) 0.42, Basophils # (Auto) 0.05 06/11/17 01:30 Test 06/11/17 01:30 06/11/17 01:35 06/11/17 03:46 White Blood Count 8.79 K/uL (4.8-10.8) Red Blood Count 4.53 M/uL (4.2-5.4) Hemoglobin 13.8 g/dL (12.0-16.0) Hematocrit 40.5 % (37-47) Mean Corpuscular Volume 89.4 fL (80-100) Mean Corpuscular Hemoglobin 30.5 pg (25-34) Mean Corpuscular Hemoglobin Concent 34.1 g/dl (32-36) Platelet Count 167 K/uL (130-400) Mean Platelet Volume 10.7 fL (7.4-10.4) Neutrophils (%) (Auto) 50.8 % Lymphocytes (%) (Auto) 38.1 % Monocytes (%) (Auto) 5.5 % Eosinophils (%) (Auto) 4.8 % Basophils (%) (Auto) 0.6 % Neutrophils # (Auto) 4.47 K/uL (1.4-6.5) Lymphocytes # (Auto) 3.35 K/uL (1.2-3.4) Monocytes # (Auto) 0.48 K/uL (0.11-0.59) Eosinophils # (Auto) 0.42 K/uL (0-0.5) Basophils # (Auto) 0.05 K/uL (0-0.2) RDW Standard Deviation 42.3 fL (36.4-46.3) RDW Coefficient of Variation 13.0 % (11.5-14.5) Immature Granulocyte % (Auto) 0.2 % Immature Granulocyte # (Auto) 0.02 K/uL (0.00-0.02) Anion Gap 5.0 mmol/L (3-11) Est Creatinine Clear Calc Drug Dose 66.2 ml/min Estimated GFR () 70.7 Estimated GFR (Non- 61.0 BUN/Creatinine Ratio 9.4 (10-20) Calcium Level 9.0 mg/dl (8.5-10.1) Magnesium Level 2.0 mg/dl (1.8-2.4) Total Bilirubin 0.3 mg/dl (0.2-1) Direct Bilirubin < 0.1 mg/dl (0-0.2) Aspartate Amino Transf (AST/SGOT) 22 U/L (15-37) Alanine Aminotransferase (ALT/SGPT) 37 U/L (12-78) Alkaline Phosphatase 135 U/L (45-117) Total Protein 7.1 gm/dl (6.4-8.2) Albumin 3.5 gm/dl (3.4-5.0) Lipase 86 U/L (73-393) Bedside D-Dimer > 450 ng/mlFEU (0-450) Bedside Troponin I < 0.030 ng/ml (0-0.045) Medications Administered Medications (Trade) Dose Ordered Sig/Alvarez Route Start Time Stop Time Status Last Admin Dose Admin Lorazepam (Ativan Inj) 1 mg NOW STAT IV 06/11/17 01:57 06/11/17 01:59 DC 06/11/17 02:05 1 MG Potassium Chloride (Klor-Con M10) 40 meq NOW STAT PO 06/11/17 02:03 06/11/17 02:04 DC 06/11/17 02:18 40 MEQ ED Course Prior records/ancillary studies reviewed. Triage Nursing notes reviewed. Additional history obtained from family The patient's history was concerning for chest pain. Differential diagnosis: Etiologies such as cardiac ischemia, side effect of drug use, aortic dissection , pulmonary embolism, pneumonia, pneumothorax, musculoskeletal, infections, pericarditis, myocarditis, esophageal rupture, gastrointestinal, as well as others were entertained. Physical examination: As above. ER treatment provided: Ativan, capsaicin cream On reassessment the patient felt better. Diagnostic interpretation by me: The electrocardiogram was normal sinus, normal intervals, diffuse T-wave inversions unchanged from prior EKG from March 2017. Impression normal sinus rhythm with unchanged T-wave inversions throughout interpreted by myself. The labs revealed no leukocytosis. Negative troponin 2 greater than 2 hours apart. Elevated d-dimer and patient was sent for CTA Imaging studies: Chest x-ray with no acute consolidation, pneumothorax or free of my interpretation CTA was negative for PE. CTA CHEST: No pulmonary embolus identified. No aortic aneurysm or dissection. Mosaic pattern of attenuation throughout the lungs may represent atelectasis versus small airways disease versus small vessel disease versus an infectious/inflammatory process. No focal consolidation. Bronchial wall thickening may represent bronchitis. Small calcified mediastinal and right hilar lymph nodes. Small calcified granuloma in the right lower lobe. Thyroid nodules may be further evaluated with nonemergent dedicated ultrasound if clinically indicated. Mild prominence of the wall of this distal esophagus is nonspecific. Esophagitis is not excluded. Prior cholecystectomy. Radiologist: Fernando Denson M.D. Study ready at 02:46 and initial results transmitted HEART SCORE: Hx: high/mod/low suspicion: 0 ECG: ST depression/nonspecific changes/normal: 0 Age: Greater than 65/45-64/less than 45: 1 Risk factors: (Hypertension, hyperlipidemia, diabetes, coronary disease, tobacco use, cocaine use): 3 Troponin: Greater than 2 times normal limits/1-2 times normal limits/normal: 0 Total: 4 Exam and history seem consistent with chest pain or shortness of breath after smoking marijuana. Patient has multiple risk factors for heart disease. She had 2 negative troponins. An unchanged EKG. No recent stress test or echo. She has a history of blood pressure, cholesterol, drug use and she smokes. She is advised to get an outpatient stress and echo this week with cardiology and strongly encouraged to quit smoking and doing drugs. Patient was advised to use the capsaicin cream 2-3 times a day to the chest and abdomen. She is advised not to use it on her face. She is advised to wear gloves when she does this. Patient exam does not seem consistent with cardiac in etiology. She had no PE. She was advised to return to the ER immediately for chest pain, difficulty breathing, worsening signs or symptoms or as needed. I will check on the patient multiple times and she was asleep majority the time in the ER. I do not believe she is a 9 out of 10 pain as the patient was sleeping throughout the majority of her ER stay. By the evaluation outlined above emergent etiologies such as cardiac ischemia, aortic dissection, pulmonary embolism, pneumonia, pneumothorax, infections, pericarditis, myocarditis, gastrointestinal, as well as others were deemed relatively unlikely. Patient already has an appointment with the family care doctor on Tuesday. She is advised to keep this. Patient had no signs of infection. She is not coughing more than normal. She has not had a cold. I do not believe her CTA is concerning for infection. She is a chronic smoker and marijuana user. The pt informed about the findings as listed above. All questions were answered and pleased with the treatment. Return instructions were outlined and the patient was discharged in stable condition. Referral: The patient was referred back to primary care physician for follow-up in 2 to 3 days for a recheck of the current condition. Case reviewed with my attending The chart was completed utilizing [employer] Speech voice recognition software. Grammatical errors, random word insertions, pronoun errors, and incomplete sentences are an occassional consequence of this system due to software limitations, ambient noise, and hardware issues. Any formal questions or concerns about the content, text, or information contained within the body of this dictation should be directly addressed to the physician press operator assistant for clarification. Medical Decision As above Medication Reconcilliation Current Medication List: was personally reviewed by me Blood Pressure Screening Patient's blood pressure: Normal blood pressure Impression Primary Impression: Substernal precordial chest pain Additional Impression: Marijuana use Departure Information Dispostion Home / Self-Care Condition GOOD Referrals Nestor Blanco M.D. (PCP) Patient Instructions My [facility] Additional Instructions DO NOT drive, drink alcohol, operate machinery, or perform dangerous activities today. You were given medications in the ER that can affect your ability to safely function or operate a vehicle. Use the capsaicin cream 2-3 times a day to the affected area, not on your face. Wear gloves when applying this. Ibuprofen(Motrin, Advil) may be used for fever or pain. Use 600mg every six hours as needed. Take with food. Avoid using more than 2400mg in a 24 hour period. Do not use 2400mg per day for more than three consecutive days without physician direction. Prolonged inappropriate use can lead to stomach upset or ulcers. (AND/OR) Acetaminophen(Tylenol) may be used for fever or pain. Use 1000mg every six hours as needed. Avoid using more than 3000mg in a 24 hour period. Rest and drink plenty of fluids as tolerated. Continue current medications. Avoid strenuous activities and anything that worsens your pain. Resume normal activities once your symptoms resolve. Return to the ER immediately for worsening or persistent chest pain, abdominal pain, vomiting, fevers, chest pains, difficulty breathing, worsening of your condition, or as needed. Follow up with your primary physician in 2-3 days for a recheck of your current condition. Recommend outpatient stress test and echo this week. Your family doctor can arrange this. Problem Qualifiers
[2017-06-11 04:09] VITALS: BP 106/84; PULSE 83; O2SAT 94
--- NOTE | 2017-06-11 06:46 | DIAGNOSTIC IMAGING REPORT ---
CHEST ONE VIEW PORTABLE CLINICAL HISTORY: 52 years-old Female presenting with CHEST PAIN. TECHNIQUE: Portable upright AP view of the chest was obtained. COMPARISON: 10/06/2015. FINDINGS: Cardiomediastinal silhouette normal. No focal opacity. No large effusion or pneumothorax. Osseous structures normal. Upper abdomen normal. IMPRESSION: 1. No acute cardiopulmonary disease. Electronically signed by: Nestor Nolasco M.D. 06/11/2017 6:44 AM Dictated Date/Time: 06/11/2017 6:44 AM
--- NOTE | 2017-06-11 08:31 | DIAGNOSTIC IMAGING REPORT ---
(CHEST FOR PE) ANGIO WITH CLINICAL HISTORY: 52 years-old Female presenting with ^CP, tob and drug use, ? PE. TECHNIQUE: Multidetector CT angiography of the chest was performed after administration of intravenous contrast. 3-D volumetric and/or maximum intensity projection (MIP) images were subsequently reconstructed for review. IV contrast: 93 mL of Optiray 320. A dose lowering technique was used consistent with the principles of ALARA (as low as reasonably achievable). COMPARISON: 05/26/2015. CT DOSE (mGy.cm): The estimated cumulative dose is 702.96 mGy.cm. FINDINGS: Food Service Cashier topogram: Unremarkable. Pulmonary vasculature: The study is adequate for assessment of the pulmonary vascular tree. No filling defect within the pulmonary arteries to suggest embolus. Main pulmonary artery is not enlarged. No flattening of the interventricular septum. No intracardiac filling defect. No reflux of contrast into the hepatic veins. Remaining chest: On soft tissue windows, few subcentimeter nodules in the thyroid. No axillary, supraclavicular, hilar, or mediastinal lymphadenopathy. Calcified mediastinal and right hilar lymph nodes noted. Atherosclerosis of the aorta. Normal heart size. No pericardial or pleural effusion. Cholecystectomy clips. Minimal wall thickening of the esophagus. On lung windows, persistent diffuse mosaic attenuation. Minimal groundglass opacity likely atelectasis. Solid peripheral 6 mm nodule in the right lower lobe (series 4 image 80), unchanged. Calcified granuloma noted in the right lower lobe. Solid polygonal 5 mm fissural nodule in the left lower lobe (series 4 image 133), unchanged. A smaller adjacent similar nodule is also noted (series 4 image 135). Solid 3 mm peripheral left lower lobe nodule (series 4 image 87), unchanged. Solid subpleural triangular 7 mm nodule at the left lower lobe (series 4 image 39), unchanged. 3 mm peripheral left lower lobe nodule (series 4 image 99). Diffuse bronchial wall thickening and minimal subsegmental bronchial debris. Central airways remain patent. On bone windows, degenerative changes of the spine. IMPRESSION: 1. No evidence of pulmonary embolus. 2. Persistent mosaic attenuation of the lung parenchyma. This is a nonspecific pattern and can be seen in the setting of small airways disease/bronchiolitis, asthma, constrictive bronchiolitis, desquamative interstitial pneumonia given the smoking history, or, less likely, diffuse idiopathic pulmonary neuroendocrine cell hyperplasia (DIPNECH). There is no history of pulmonary emboli to suggest this pattern relating to occlusive vascular disease. 3. Multiple solid pulmonary nodules. These can relate to the mosaic attenuation pattern in the setting of the DIPNECH but are otherwise nonspecific and are unchanged from prior. Follow-up as appropriate per [place] [employer] 2017 recommendations below. 4. Evidence of old granulomatous infection. The report will be called/faxed according to standard departmental protocol. Please refer to below summary of Fleischner Society 2017 recommendations for follow-up of incidental CT nodules (Ashwin Norris et al. Guidelines for management of incidental pulmonary nodules detected on CT images: From the Fleischner Society 2017. Radiology 2017; 284: 228-243.) SOLID NODULES Single nodule; size < 6 mm * Low risk patients: No routine follow-up * High risk patients: Optional CT at 12 months Single nodule; size 6-8 mm * Low risk patients: CT at 6-12 months, then consider CT at 18-24 months * High risk patients: CT at 6-12 months, then at 18-24 months Single nodule; size > 8 mm * Either low or high risk patients: Considered CT at 3 months, PET/CT, or tissue sampling Multiple nodules; size < 6 mm * Low risk patients: No routine follow up * High risk patients: Optional CT at 12 months Multiple nodules; size 6-8 mm * Low risk patients: CT at 3-6 months, then consider CT at 18-24 months * High risk patients: CT at 3-6 months, then at 18-24 months Multiple nodules; size > 8 mm * Low risk patients: CT at 3-6 months, then consider at 18-24 months * High risk patients: CT at 3-6 months, then at 18-24 months SUBSOLID NODULES Single ground-glass nodule * Nodule size < 6 mm: No routine follow-up * Nodule size > or = 6 mm: CT at 6-12 months to confirm persistence, then CT every 2 years until 5 years Single part-solid nodule * Nodule size < 6 mm: No routine follow-up * Nodules size > or = 6 mm: CT at 3-6 months to confirm persistence. If unchanged and solid component remains < 6 mm, annual CT should be performed for 5 years Multiple nodules * Nodule size < 6 mm: CT at 3-6 months. If stable, consider CT at 2 and 4 years. * Nodules size > or = 6 mm: CT at 3-6 months. Subsequent management based on the most suspicious nodule(s) NOTE: 1) These guidelines apply to incidental nodules. These guidelines do NOT apply to patients younger than 35 years, immunocompromised patients, or patients with cancer. 2) Risk categories: * Low risk patients: Minimal or absent history of smoking and/or other known risk factors * High risk patients: History of smoking, exposure to other carcinogens, emphysema, fibrosis, upper lobe location, family history of lung cancer, etc. 3) If a nodule up to 8 mm is partly solid or is ground glass, further follow-up is required after 24 months to exclude possible slow growing adenocarcinoma. Electronically signed by: Nestor Nolasco M.D. 06/11/2017 8:30 AM Dictated Date/Time: 06/11/2017 8:18 AM
== END 2017-06-11 04:13 | disposition home or self-care (01) ==
LOC: C.EDB 01:16 → C.EDA 04:13
DX: R07.2 Precordial pain (principal); R06.02 Shortness of breath; F12.10 Cannabis abuse, uncomplicated; Z79.899 Other long term (current) drug therapy; F17.210 Nicotine dependence, cigarettes, uncomplicated; F41.9 Anxiety disorder, unspecified; J44.9 Chronic obstructive pulmonary disease, unspecified; F32.9 Major depressive disorder, single episode, unspecified; I10 Essential (primary) hypertension; K58.9 Irritable bowel syndrome, unspecified

== ENCOUNTER 2017-06-27 17:14 | Emergency (ER) | payer OTHER ==
[~2017-06-27 17:14] MED LIST changes: +QUET400T PO
[2017-06-27 17:15] VITALS: TEMP 36.7; Ht 160 cm
[2017-06-27] MEDS ORDERED: SODIUM CHLORIDE 0.9% 1000ML 2,000 ML IV STA (17:27)
[2017-06-27] MEDS ORDERED: KETOROLAC TROMETHAMINE 30 MG/ML VIAL IV STA (17:27)
[2017-06-27] MEDS ORDERED: HYDROmorphone INJ 0.5 MG/0.5 ML SYR IV STA (17:27)
[2017-06-27] MEDS ORDERED: ONDANSETRON INJ 2 MG/ML 2 ML VIAL IV STA (17:27)
[2017-06-27] MEDS ORDERED: OPTIRAY 320 IV PRN (17:30)
[2017-06-27 18:00] LABS: BASO % 0.3 %; BASO ABS # 0.03 K/uL (0-0.2); EOS % 1.1 %; EOS ABS # 0.13 K/uL (0-0.5); HEMATOCRIT 42.4 % (37-47); HEMOGLOBIN 14.7 g/dL (12.0-16.0); IG# 0.02 K/uL (0.00-0.02); LYMPH % 13.6 %; LYMPH ABS # 1.57 K/uL (1.2-3.4); MEAN CELL VOLUME 86.7 fL (80-100); MEAN CORPUSCULAR HEMOGLOBIN 30.1 pg (25-34); MEAN CORPUSCULAR HGB CONC 34.7 g/dl (32-36); MONO % 3.5 %; NEUT % 81.3 %; NEUT ABS # 9.38 K/uL (1.4-6.5); PLATELET COUNT 165 K/uL (130-400); RED CELL DISTRIBUTION WIDTH CV 13.2 % (11.5-14.5); RED CELL DISTRIBUTION WIDTH SD 42.3 fL (36.4-46.3); WHITE BLOOD COUNT 11.53 K/uL (4.8-10.8)
[2017-06-27 18:20] LABS: ALBUMIN 3.8 gm/dl (3.4-5.0); ALKALINE PHOSPHATASE 116 U/L (45-117); ALT/SGPT 20 U/L (12-78); AST/SGOT 17 U/L (15-37); BLOOD UREA NITROGEN 14 mg/dl (7-18); CALCIUM 9.3 mg/dl (8.5-10.1); CARBON DIOXIDE 23 mmol/L (21-32); CREATININE 1.09 mg/dl (0.60-1.20); GLUCOSE 109 mg/dl (70-99); LIPASE 105 U/L (73-393); POTASSIUM 3.5 mmol/L (3.5-5.1); SODIUM 143 mmol/L (136-145); TOTAL PROTEIN 7.4 gm/dl (6.4-8.2)
--- NOTE | 2017-06-27 19:09 | DIAGNOSTIC IMAGING REPORT ---
LUMBAR SPINE WITHOUT HISTORY: 52 years-old Female lower back pain acute low back pain COMPARISON: CT abdomen and pelvis of same day TECHNIQUE: Multiple axial CT images of the lumbar spine were obtained without the use of IV contrast. A dose lowering technique was used consistent with the principals of KIRA. FINDINGS: Minimal subsegmental dependent bibasilar atelectasis. Mild left-sided hydroureteronephrosis, further described on CT abdomen and pelvis of same day. Left-sided nephrolithiasis. Moderate atherosclerosis of the aorta without aneurysm. No bulky adenopathy. Prior cholecystectomy. No acute amount of the paraspinal tissues. Mild degenerative changes about the SI joints. There is no acute fracture or subluxation identified. There is mild to moderate facet arthrosis at L3-L4 through L5-S1 along with mild multilevel spondylitic spurring. No significant intervertebral disc space narrowing, central canal or foraminal narrowing identified. Small posterior disc bulge at L2-L3 flattens the ventral thecal sac. Small circumferential annular disc bulges at L4-L5 and L5-S1 without significant central canal or foraminal narrowing identified. IMPRESSION: 1. No acute fracture or subluxation of the lumbar spine. 2. Mild degenerative changes as above. 3. Please see separately dictated CT abdomen and pelvis study of same day for discussion of intra-abdominal findings. The above report was generated using voice recognition software. It may contain grammatical, syntax or spelling errors. Electronically signed by: Bg Irving M.D. 06/27/2017 7:07 PM Dictated Date/Time: 06/27/2017 7:02 PM
--- NOTE | 2017-06-27 19:12 | DIAGNOSTIC IMAGING REPORT ---
CT OF THE ABDOMEN AND PELVIS WITHOUT CONTRAST, STONE PROTOCOL CLINICAL HISTORY: Left-sided abdominal and back pain. COMPARISON STUDY: CT of the abdomen and pelvis March 12, 2016. TECHNIQUE: Helical axial images of the abdomen and pelvis were obtained without IV or oral contrast according to renal stone protocol. A dose lowering technique was utilized adhering to the principles of ALARA. FINDINGS: The lumbar spine CT will be reported separately. There is moderate left hydronephrosis due to a 6 mm x 5 mm left ureteral calculus located just inferior to the level of the sacroiliac joint. No additional ureteral calculi are present. There is a punctate calculus within the lower pole of the left kidney. Evaluation of the abdomen and pelvis is suboptimal as unenhanced exam. No biliary ductal dilatation status post cholecystectomy. A subcentimeter lateral segment hepatic lesion is unchanged and is benign. A few small lung nodules within the lung bases are unchanged from earlier exams and are benign given stability. There is no evidence for a bowel obstruction. No lymphadenopathy is present. There are no suspicious osseous lesions. IMPRESSION: 1. Moderate left hydronephrosis due to a 6 mm x 5 mm distal left ureteral calculus located just inferior to the level of the sacroiliac joint. 2. Punctate left renal calculus. Electronically signed by: Jose Raul Cardona M.D. 06/27/2017 7:10 PM Dictated Date/Time: 06/27/2017 7:01 PM
[2017-06-27] MEDS ORDERED: OXYC1TAB3 PO (19:31)
[2017-06-27] MEDS ORDERED: TAMS0.4C38 PO (19:31)
[2017-06-27 20:04] VITALS: BP 138/78; PULSE 78; O2SAT 98
--- NOTE | 2017-06-27 22:28 | EMERGENCY ROOM VISIT NOTE ---
History Report prepared by Malorie: Harrison Gasca Under the Supervision of: Dr. Raza Vieira D.O. First contact with patient: 17:17 Chief Complaint: ABDOMINAL PAIN Stated Complaint: SEVERE BACK AND ABDOMINAL/PELVIC PAIN History of Present Illness The patient is a 52 year old female who presents to the Emergency Room with complaints of constant back pain beginning at 1115 today. The patient states that she was sitting in a chair when her pain started. She notes that she has not had similar symptoms in the past. She reports that nothing she does worsens or makes her pain better. She also complains of abdominal pain and numbness in her legs that she believes is from her pain. She rates her pain as a 10/10. She denies any urinary symptoms and groin pain. She reports that she was in the emergency department a week ago and states that there was skin found in her urine. She notes that she has a history of two sections, a complete hysterectomy, appendectomy, and cholecystectomy. Source of History: patient Onset: 1115 today Position: back Symptom Intensity: 10/10 Timing: constant Associated Symptoms: + abdominal pain, + numbness (in her legs ), No urinary symptoms Note: She denies any groin pain. Review of Systems See HPI for pertinent positives & negatives. A total of 10 systems reviewed and were otherwise negative. Past Medical & Surgical Medical Problems: (1) Anxiety (2) delivery delivered (3) COPD, moderate (4) Depression (5) Dyslipidemia (6) HTN (hypertension) (7) IBS (irritable bowel syndrome) Surgical Problems: (1) S/P appendectomy (2) S/P cholecystectomy (3) S/P laparoscopy (4) S/P total hysterectomy and BSO (bilateral salpingo-oophorectomy) Family History Cancer Diabetes mellitus FH: gallbladder disease FH: heart disease FH: lung disease Heart disease Hypertension Kidney disease Kidney stones Seizures Social History Smoking Status: Never Smoker Alcohol Use: none Drug Use: marijuana Marital Status: Housing Status: lives alone Occupation Status: unemployed Current/Historical Medications Scheduled Alprazolam (Xanax), 0.5 MG PO HS Atorvastatin (Lipitor), 10 MG PO QPM Buspirone HCl (Buspirone HCl), 20 MG PO BID Calcium Carbonate-Cholecalcife (Caltrate 600+D), 1 TAB PO DAILY Gabapentin (Gabapentin), 800 MG PO TID Hydroxyzine Pamoate (Vistaril), 1 CAP PO HS Meloxicam (Meloxicam), 15 MG PO DAILY Metoprolol Succinate (Metoprolol Succinate ER), 12.5 MG PO DAILY Mirtazapine (Remeron), 30 MG PO HS Nortriptyline HCl (Nortriptyline HCl), 10 MG PO DAILY Omeprazole (Prilosec), 40 MG PO DAILY Quetiapine Fumarate Xr (Seroquel Xr Tab), 400 MG PO DAILY Tamsulosin Hcl (Flomax), 0.4 MG PO DAILY Topiramate (Topamax), 100 MG PO BID Trazodone HCl (Trazodone HCl), 150 MG PO HS Venlafaxine Hcl (Venlafaxine Hcl Er), 150 MG PO DAILY Venlafaxine Hcl (Effexor), 1 TAB PO noon Scheduled PRN Ipratropium-Albuterol (Duoneb), 1 TREATMENT INH QID PRN for SOB/Wheezing Ipratropium-Albuterol (Combivent Respimat), 1 PUFFS INH QID PRN for SOB/Wheezing Oxycodone Immediate Rel Tab (Roxicodone Ir), 5 MG PO Q6H PRN for Pain Allergies Coded Allergies: Amoxicillin (Verified Allergy, Severe, unknown, 06/11/17) Clavulanic Acid (Verified Allergy, Severe, unknown, 06/11/17) Tetracyclines (Verified Allergy, Unknown, DOXYCYCLINE, 06/11/17) Morphine (Verified Adverse Reaction, Unknown, stomach cramps, 06/11/17) Physical Exam Vital Signs Date Time Temp Pulse Resp B/P (MAP) Pulse Ox O2 Delivery O2 Flow Rate FiO2 06/27/17 20:04 78 20 138/78 98 Room Air 06/27/17 19:05 88 18 137/91 98 Room Air 06/27/17 17:15 36.7 90 16 174/106 97 Room Air Physical Exam GENERAL: Laying in bed, holding back, legs pulled to chest, well nourished, in moderate distress, non-toxic EYE EXAM: normal conjunctiva. OROPHARYNX: no exudate, no erythema, lips, buccal mucosa, and tongue normal and mucous membranes are moist NECK: supple, no nuchal rigidity, no adenopathy, non-tender LUNGS: Clear to auscultation. Normal chest wall mechanics HEART: no murmurs, S1 normal and S2 normal ABDOMEN: abdomen soft, normo-active bowel sounds, no masses, no rebound or guarding, mild diffuse tenderness. BACK: Back is symmetrical on inspection and there is no deformity, no midline tenderness, no CVA tenderness. SKIN: no rashes and no bruising UPPER EXTREMITIES: upper extremities are grossly normal. LOWER EXTREMITIES: No pitting edema. Flexion and extension of the hips, knees, ankles, and EHL 5/5 bilaterally. Gross sensation is intact. DPs are 2/4 bilateral. Patellar and Achilles reflexes are 2/4 bilateral NEURO EXAM: Normal sensorium, cranial nerves II-XII grossly intact, normal speech, no gross weakness of arms Medical Decision & Procedures ER Provider Diagnostic Interpretation: Radiology results as stated below per my review and the radiologist's interpretation: CT OF THE ABDOMEN AND PELVIS WITHOUT CONTRAST, STONE PROTOCOL FINDINGS: The lumbar spine CT will be reported separately. There is moderate left hydronephrosis due to a 6 mm x 5 mm left ureteral calculus located just inferior to the level of the sacroiliac joint. No additional ureteral calculi are present. There is a punctate calculus within the lower pole of the left kidney. Evaluation of the abdomen and pelvis is suboptimal as unenhanced exam. No biliary ductal dilatation status post cholecystectomy. A subcentimeter lateral segment hepatic lesion is unchanged and is benign. A few small lung nodules within the lung bases are unchanged from earlier exams and are benign given stability. There is no evidence for a bowel obstruction. No lymphadenopathy is present. There are no suspicious osseous lesions. IMPRESSION: 1. Moderate left hydronephrosis due to a 6 mm x 5 mm distal left ureteral calculus located just inferior to the level of the sacroiliac joint. 2. Punctate left renal calculus. Electronically signed by: Jose Raul Cardona M.D. 06/27/2017 7:10 PM LUMBAR SPINE WITHOUT FINDINGS: Minimal subsegmental dependent bibasilar atelectasis. Mild left-sided hydroureteronephrosis, further described on CT abdomen and pelvis of same day. Left-sided nephrolithiasis. Moderate atherosclerosis of the aorta without aneurysm. No bulky adenopathy. Prior cholecystectomy. No acute amount of the paraspinal tissues. Mild degenerative changes about the SI joints. There is no acute fracture or subluxation identified. There is mild to moderate facet arthrosis at L3-L4 through L5-S1 along with mild multilevel spondylitic spurring. No significant intervertebral disc space narrowing, central canal or foraminal narrowing identified. Small posterior disc bulge at L2-L3 flattens the ventral thecal sac. Small circumferential annular disc bulges at L4-L5 and L5-S1 without significant central canal or foraminal narrowing identified. IMPRESSION: 1. No acute fracture or subluxation of the lumbar spine. 2. Mild degenerative changes as above. 3. Please see separately dictated CT abdomen and pelvis study of same day for discussion of intra-abdominal findings. The above report was generated using voice recognition software. It may contain grammatical, syntax or spelling errors. Electronically signed by: Bg Irving M.D. 06/27/2017 7:07 PM Laboratory Results 06/27/17 12:49 Red Blood Count 4.89, Mean Corpuscular Volume 86.7, Mean Corpuscular Hemoglobin 30.1, Mean Corpuscular Hemoglobin Concent 34.7, Mean Platelet Volume 11.0, Neutrophils (%) (Auto) 81.3, Lymphocytes (%) (Auto) 13.6, Monocytes (%) (Auto) 3.5, Eosinophils (%) (Auto) 1.1, Basophils (%) (Auto) 0.3, Neutrophils # (Auto) 9.38, Lymphocytes # (Auto) 1.57, Monocytes # (Auto) 0.40, Eosinophils # (Auto) 0.13, Basophils # (Auto) 0.03 06/27/17 12:49 Test 06/27/17 12:49 06/27/17 18:11 White Blood Count 11.53 K/uL (4.8-10.8) Red Blood Count 4.89 M/uL (4.2-5.4) Hemoglobin 14.7 g/dL (12.0-16.0) Hematocrit 42.4 % (37-47) Mean Corpuscular Volume 86.7 fL (80-100) Mean Corpuscular Hemoglobin 30.1 pg (25-34) Mean Corpuscular Hemoglobin Concent 34.7 g/dl (32-36) Platelet Count 165 K/uL (130-400) Mean Platelet Volume 11.0 fL (7.4-10.4) Neutrophils (%) (Auto) 81.3 % Lymphocytes (%) (Auto) 13.6 % Monocytes (%) (Auto) 3.5 % Eosinophils (%) (Auto) 1.1 % Basophils (%) (Auto) 0.3 % Neutrophils # (Auto) 9.38 K/uL (1.4-6.5) Lymphocytes # (Auto) 1.57 K/uL (1.2-3.4) Monocytes # (Auto) 0.40 K/uL (0.11-0.59) Eosinophils # (Auto) 0.13 K/uL (0-0.5) Basophils # (Auto) 0.03 K/uL (0-0.2) RDW Standard Deviation 42.3 fL (36.4-46.3) RDW Coefficient of Variation 13.2 % (11.5-14.5) Immature Granulocyte % (Auto) 0.2 % Immature Granulocyte # (Auto) 0.02 K/uL (0.00-0.02) Anion Gap 7.0 mmol/L (3-11) Estimated GFR () 67.6 Estimated GFR (Non- 58.3 BUN/Creatinine Ratio 12.5 (10-20) Calcium Level 9.3 mg/dl (8.5-10.1) Total Bilirubin 0.3 mg/dl (0.2-1) Direct Bilirubin < 0.1 mg/dl (0-0.2) Aspartate Amino Transf (AST/SGOT) 17 U/L (15-37) Alanine Aminotransferase (ALT/SGPT) 20 U/L (12-78) Alkaline Phosphatase 116 U/L (45-117) Total Protein 7.4 gm/dl (6.4-8.2) Albumin 3.8 gm/dl (3.4-5.0) Lipase 105 U/L (73-393) Urine Color RED Urine Appearance TURBID (CLEAR) Urine pH 7.0 (4.5-7.5) Urine Specific [place] 1.025 (1.000-1.030) Urine Protein 2+ (NEG) Urine Glucose (UA) NEG (NEG) Urine Ketones NEG (NEG) Urine Occult Blood 3+ (NEG) Urine Nitrite NEG (NEG) Urine Bilirubin NEG (NEG) Urine Urobilinogen NEG (NEG) Urine Leukocyte Esterase NEG (NEG) Urine RBC >30 /hpf (0-4) Urine WBC 1-5 /hpf (0-5) Urine Epithelial Cells 0-5 /lpf (0-5) Urine Bacteria NEG (NEG) Urine Test NEG (NEG) Laboratory results per my review. Medications Administered Medications (Trade) Dose Ordered Sig/Alvarez Route Start Time Stop Time Status Last Admin Dose Admin Sodium Chloride 2,000 ml @ 999 mls/hr Q2H1M STAT IV 06/27/17 17:27 06/27/17 19:27 DC 06/27/17 17:47 999 MLS/HR Ketorolac Tromethamine (Toradol Inj) 30 mg NOW STAT IV 06/27/17 17:27 06/27/17 17:29 DC 06/27/17 17:45 30 MG Hydromorphone HCl (Dilaudid Inj) 0.5 mg NOW STAT IV 06/27/17 17:27 06/27/17 17:29 DC 06/27/17 17:45 0.5 MG Ondansetron HCl (Zofran Inj) 4 mg NOW STAT IV 06/27/17 17:27 06/27/17 17:29 DC 06/27/17 17:46 4 MG ED Course ED COURSE: Vital signs were reviewed and showed that the patient was tachycardic and hypertensive. The patients medical record was reviewed The above diagnostic studies were performed and reviewed. ED treatments and interventions as stated above. 1718: The patient was evaluated in room C7. A complete history and physical examination was performed. 1727: Zofran Inj 4mg IV, Dilaudid Inj 0.5mg IV, Toradol Inj 30mg IV, Sodium Chloride 2000 ml @ 999 mls/hr IV 1755: I reevaluated and updated the patient. 1846: I rechecked the patient. She states that she has not been able to urinate since her pain began but was able to urinate earlier today. She has good rectal tones and her bowels are moving. 1929: Upon reevaluation, the patient is stable. I discussed my findings with the patient and she understands and agrees with the treatment plan. Based on the patients age, coexisting illnesses, exam and lab findings the decision to treat as an outpatient was made. The patient remained stable while under my care. The patient appeared well at the time of discharge. Medical Decision Differential diagnoses includes but is not limited to gastritis, peptic ulcer disease, GERD, gallbladder disease, pancreatitis, small bowel obstruction, acute coronary syndrome, pericarditis, ischemic bowel, irritable bowel disease, irritable bowel syndrome, appendicitis, diverticulitis, malignancy, hernia, urinary tract infection, torsion, /ectopic , perforation, trauma, infectious, lumbar radiculopathy, kidney stone, muscle strain, facture, cauda equina, mass, and disc herniation. Patient is a 52-year-old female who presents the ER for severe back and abdominal pain. Labs were obtained and CBC along with BMP, LFTs, bilirubin lipase is unremarkable. UA was unremarkable. was negative. CT abdomen pelvis shows a 5 x 6 cm distal ureteral stone. He does have monitored hydronephrosis. Patient family were updated at bedside. She was given IV Dilaudid and felt better. Patient was discharged with OxyIR and Flomax. PDMP reviewed. Discussed with Pt concerning signs and symptoms to watch out for. Pt was instructed to follow up with their PCP and discussed with the patient their option to return to the ED at anytime for persistent or worsening symptoms. The appropriate anticipatory guidance and out-patient management, including indications for return to the emergency department, were explained at length to the patient and understood. [place] Drug Monitoring Program Search Results: patient reviewed within database, no issues identified Medication Reconcilliation Current Medication List: was personally reviewed by me Blood Pressure Screening Patient's blood pressure: Elevated blood pressure Blood pressure disposition: Elevated BP felt to be situational Impression Primary Impression: Renal colic on left side Scribe Attestation The scribe's documentation has been prepared under my direction and personally reviewed by me in its entirety. I confirm that the note above accurately reflects all work, treatment, procedures, and medical decision making performed by me. Departure Information Dispostion Home / Self-Care Prescriptions Tamsulosin Hcl (FLOMAX) 0.4 Mg Cap 0.4 MG PO DAILY, #10 CAP Prov: Raza Vieira, DO 06/27/17 Oxycodone Immediate Rel Tab (ROXICODONE IR) 5 Mg Tab 5 MG PO Q6H Y for Pain, #15 TAB Prov: Raza Vieira, DO 06/27/17 Referrals Nestor Blanco M.D. (PCP) Forms Call Back Authorization, HOME CARE DOCUMENTATION FORM, IMPORTANT VISIT INFORMATION Patient Instructions My [facility] Additional Instructions Please follow up with your primary care doctor with in the next 24 hours. Any worsening of your symptoms, please return to the ED immediately. This includes any fevers greater than 100.4, worsening pain, chest pain, shortness breath, persistent nausea, vomiting, unable to eat or drink, or any other concerning signs or symptoms from your standpoint. You were given medications during this visit that will inhibit your ability to drive, operate machinery and work. Please do NOT drive, operate machinery or work for the next 12hrs. You were also given a prescription for a narcotic. While taking this medication you should also not drive, operate machinery and or work. Please follow-up with urology within the next 2 weeks. Again any fevers you need to return immediately to the ER.
== END 2017-06-27 20:08 | disposition home or self-care (01) ==
LOC: C.EDB 17:15 → C.EDC 20:08
DX: N23 Unspecified renal colic (principal); J44.9 Chronic obstructive pulmonary disease, unspecified; E78.5 Hyperlipidemia, unspecified; F32.9 Major depressive disorder, single episode, unspecified; I10 Essential (primary) hypertension; Z98.891 History of uterine scar from previous surgery; Z90.710 Acquired absence of both cervix and uterus; Z90.89 Acquired absence of other organs; Z90.49 Acquired absence of other specified parts of digestive tract; Z90.722 Acquired absence of ovaries, bilateral; Z90.79 Acquired absence of other genital organ(s); Z88.1 Allergy status to other antibiotic agents; Z88.5 Allergy status to narcotic agent; Z88.8 Allergy status to other drugs, medicaments and biological substances; Z83.3 Family history of diabetes mellitus; Z82.49 Family history of ischemic heart disease and other diseases of the circulatory system; Z84.1 Family history of disorders of kidney and ureter; Z82.0 Family history of epilepsy and other diseases of the nervous system; Z79.899 Other long term (current) drug therapy

== ENCOUNTER → 2017-06-29 | Outpatient (CLI) | payer OTHER ==
[~2017-06-29] MED LIST changes: +OXYC1TAB3 PO; +TAMS0.4C38 PO
== END | disposition home or self-care (01) ==
LOC: C.LABSPEC 16:53
PROVIDERS: ATTEND Urology
DX: N20.0 Calculus of kidney (principal)

== ENCOUNTER 2017-09-20 15:25 | Emergency (ER) | payer OTHER ==
[~2017-09-20] VITALS: Ht 160 cm; Wt 86.7 kg
[~2017-09-20 15:25] MED LIST changes: +IPRA-64 INH; -IPRASOL4 INH; -MELO-83 PO; -OXYC1TAB3 PO; -TAMS0.4C38 PO
[2017-09-20 15:27] VITALS: BP 151/101; PULSE 91; TEMP 36.6; O2SAT 98; Ht 160 cm; Wt 86.7 kg
[2017-09-20] MEDS ORDERED: OXYCODONE IR HOME PACK PO ONE (16:00)
--- NOTE | 2017-09-20 20:55 | EMERGENCY ROOM VISIT NOTE ---
History First contact with patient: 15:30 Chief Complaint: DENTAL PAIN Stated Complaint: 18 TEETH REMOVED T-2WK AGO, SEVERE MOUTH PAIN Nursing Triage Summary: Patient states she had 18 teeth removed 2 weeks ago. Next dentist appointment next week. Continues with pain all over mouth. History of Present Illness The patient is a 52 year old female who presents to the Emergency Room with complaints of persistent oral pain after having 18 teeth removed [address] Solo in [place]. The patient reports that she has been doing salt water gargles 3 times daily as recommended, as well as using a soft bristle toothbrush. She reports that she ran out of her pain medications that were prescribed. She reports that they cannot get her into the office until next week. She rates her discomfort an 8 out of 10. She denies any drainage or foul taste in the mouth. She does smoke cigarettes. Review of Systems 10 system review was performed and was negative except for pertinent positives and negatives as indicated in history of present illness Past Medical/Surgical History Medical Problems: (1) Anxiety (2) delivery delivered (3) COPD, moderate (4) Depression (5) Dyslipidemia (6) HTN (hypertension) (7) IBS (irritable bowel syndrome) Surgical Problems: (1) S/P appendectomy (2) S/P cholecystectomy (3) S/P laparoscopy (4) S/P total hysterectomy and BSO (bilateral salpingo-oophorectomy) Family History Cancer Diabetes mellitus FH: gallbladder disease FH: heart disease FH: lung disease Heart disease Hypertension Kidney disease Kidney stones Seizures Social History Smoking Status: Current Every Day Smoker Alcohol Use: none Drug Use: marijuana Marital Status: Housing Status: lives alone Occupation Status: unemployed Current/Historical Medications Scheduled Alprazolam (Xanax), 0.5 MG PO HS Atorvastatin (Lipitor), 10 MG PO QPM Buspirone HCl (Buspirone HCl), 20 MG PO BID Calcium Carbonate-Cholecalcife (Caltrate 600+D), 1 TAB PO DAILY Gabapentin (Gabapentin), 800 MG PO TID Hydroxyzine Pamoate (Vistaril), 1 CAP PO HS Metoprolol Succinate (Metoprolol Succinate ER), 12.5 MG PO DAILY Mirtazapine (Remeron), 30 MG PO HS Nortriptyline HCl (Nortriptyline HCl), 10 MG PO DAILY Omeprazole (Prilosec), 40 MG PO DAILY Quetiapine Fumarate Xr (Seroquel Xr Tab), 400 MG PO DAILY Topiramate (Topamax), 100 MG PO BID Trazodone HCl (Trazodone HCl), 150 MG PO HS Venlafaxine Hcl (Venlafaxine Hcl Er), 150 MG PO DAILY Venlafaxine Hcl (Effexor), 1 TAB PO noon Scheduled PRN Ipratropium-Albuterol (Duoneb), 1 TREATMENT INH QID PRN for SOB/Wheezing Ipratropium-Albuterol (Combivent Respimat), 1 PUFFS INH QID PRN for SOB/Wheezing Physical Exam Vital Signs Date Time Temp Pulse Resp B/P (MAP) Pulse Ox O2 Delivery O2 Flow Rate FiO2 09/20/17 15:27 36.6 91 18 151/101 98 Room Air Physical Exam CONSTITUTIONAL: Healthy and well nourished. Patient does not appear in any acute distress. HEENT: Normocephalic, atraumatic. Pupils equal, round and reactive. No facial edema noted. OROPHARYNX: Examination shows a total dental extraction with no obvious gingival fluctuance, purulent drainage or active bleeding. There is no evidence for Irvin's angina or retropharyngeal abscess. LYMPHATICS: No submandibular, submental or cervical chain adenopathy. NECK: Full active range of motion without discomfort. RESPIRATORY: Clear to auscultation bilaterally with no wheezing, crackles, rhonchi or stridor. CARDIOVASCULAR: Regular rate and rhythm with no murmurs, rubs or gallops. INTEGUMENTARY: No rash or other significant dermatologic conditions noted. NEUROLOGIC: Facial sensations are intact. Medical Decision & Procedures Medications Administered Medications (Trade) Dose Ordered Sig/Alvarez Route Start Time Stop Time Status Last Admin Dose Admin Oxycodone HCl (Roxicodone Immediate Rel 5MG Home Pack) 1 homepack ONCE PO 09/20/17 16:00 09/20/17 16:01 DC 09/20/17 15:54 1 HOMEPACK ED Course Patient history and physical exam were performed. Nurse's notes were reviewed. Vital signs were reviewed, showing an elevated blood pressure 151/101. The patient does not appear in any significant discomfort. I also reviewed data from the [place] Prescription Drug Monitoring Program, showing that the patient has received 3 prescriptions from her dentist over the past 11 days for [place] 7.5/325, and Tylenol with codeine. I also recommended that I try to call Dr. Solo's office for further suggestions on treatment. I did speak with the client delivery specialist who reported that the patient has been offered appointments throughout this week, but the patient reported that she could not get to the office. I discussed this further with the patient, who reports that she is having difficulty with transportation. The patient was advised that the emergency department does not provide dental services. I also explained that no other dentist or oral surgeon will see her locally since she has had surgery done elsewhere. I also explained that the emergency department would not provide prescriptions for pain management. It is noted that the patient has received 21 prescriptions from 11 different providers over the past year, with prescriptions filled at 5 different pharmacies. The patient will be provided an OxyIR home pack of four OxyIR 5 mg tablets. The patient voiced understanding of all discharge instructions, was happy with plan of care, and rated her discomfort a 6 out of 10 at the conclusion of my exam. I also encouraged the patient to follow-up with her PCP for blood pressure recheck. Medical Decision [place] Drug Monitoring Program Search Results: patient reviewed within database, see additional documentation Medication Reconcilliation Current Medication List: was personally reviewed by me Blood Pressure Screening Patient's blood pressure: Elevated blood pressure Blood pressure disposition: Referred to PCP Impression Primary Impression: Post extraction dental pain Additional Impression: Elevated blood pressure reading Departure Information Dispostion Home / Self-Care Condition GOOD Referrals Alonzo Solo D.M.D. Forms HOME CARE DOCUMENTATION FORM, IMPORTANT VISIT INFORMATION Patient Instructions My [facility] Additional Instructions Continue with oral care as instructed by your oral surgeon. Ibuprofen 800 mg and/or Tylenol 1000 mg every 8 hours. You may also alternate these medications for more effective pain relief: Ibuprofen --4 HRS--> Tylenol --4 HRS--> ibuprofen --4 HRS--> Tylenol .... Take OxyIR 5 mg every 4-6 hours as needed for pain. You must follow-up with your oral surgeon for further management. The emergency department does not provide dental services, referrals or chronic dental pain management, and cannot provide any further prescription pain medications. These prescriptions must come from your oral surgeon who provided your care. Problem Qualifiers
== END 2017-09-20 16:20 | disposition home or self-care (01) ==
LOC: C.EDB 15:26 → C.EDD 16:20
DX: K08.89 Other specified disorders of teeth and supporting structures (principal); J44.9 Chronic obstructive pulmonary disease, unspecified; E78.5 Hyperlipidemia, unspecified; F32.9 Major depressive disorder, single episode, unspecified; I10 Essential (primary) hypertension; Z79.899 Other long term (current) drug therapy; F17.210 Nicotine dependence, cigarettes, uncomplicated; K58.9 Irritable bowel syndrome, unspecified; R03.0 Elevated blood-pressure reading, without diagnosis of hypertension

== ENCOUNTER 2019-12-17 22:13 | Observation (INO) ==
[2019-12-17] MEDS ORDERED: diphenhydrAMINE 50 MG/ML VIAL IV STA (22:46)
[2019-12-17] MEDS ORDERED: KETOROLAC TROMETHAMINE 15 MG/ML VIAL IV STA (22:46)
[2019-12-17] MEDS ORDERED: METOCLOPRAMIDE HCL INJ 5 MG/ML 2 ML VIAL IV STA (22:46)
--- NOTE | 2019-12-17 22:58 | Emergency Department Note ---
History of Present Illness General Chief complaint: Back Injury/Pain Stated complaint: LOWER BACK PAIN Time Seen by Provider: 12/17/19 22:27 History of Present Illness Maximum Pain Intensity: 9 This 54-year-old presents to the ER complaining of acute on chronic pain throughout her body with increasing leg pain and swelling Location: Generalized Quality: Painful Severity: Moderate Duration: Today Timing: Started after overexerting herself cleaning Context: Pain got worse and patient came in Modifying factors: better with rest; worse with activity Patient states she has chronic pain syndrome. She states occasionally she gets flares. This feels similar. She also is complaining of worsening pain and swelling to her legs. She does smoke. Patient denies chest pain, dyspnea, fever, chills, flulike illness. Home Medications Home Medications Medication Instructions Recorded Confirmed Type buspirone 20 mg PO BID 10/27/17 12/18/19 History lisinopril 5 mg PO QAM 10/27/17 12/18/19 History omeprazole 40 mg PO QAM 10/27/17 12/18/19 History topiramate [Topamax] 100 mg PO BID 10/27/17 12/18/19 History venlafaxine [Effexor XR] 150 mg PO QAM 10/27/17 12/18/19 History trazodone 150 mg PO HS 12/14/17 12/18/19 History gabapentin 800 mg PO TID 04/18/18 12/18/19 History quetiapine [Seroquel XR] 400 mg PO HS 04/18/18 12/18/19 History duloxetine 30 mg PO HS 07/24/18 12/18/19 History albuterol sulfate 1 puff INHALATION Q4H PRN 07/11/19 12/18/19 History ipratropium-albuterol 3 ml INHALATION QID PRN 07/11/19 12/18/19 History venlafaxine [Effexor XR] 75 mg PO QAM 12/18/19 12/18/19 History Allergies Allergy/AdvReac Type Severity Reaction Status Date / Time amoxicillin Allergy Severe Anaphylaxis Verified 12/18/19 01:47 Tetracyclines Allergy Severe Anaphylaxis Verified 12/18/19 01:47 morphine AdvReac Severe stomach Verified 12/18/19 01:47 cramps Past Med/Surg History Medical History (Updated 12/18/19 @ 01:37 by Katiana Camacho PA-C) Anxiety Bipolar disorder Cardiac murmur Chronic obstructive pulmonary disease Depression Endometriosis Fibromyalgia GERD (gastroesophageal reflux disease) Hyperlipidemia Hypertension Insomnia Kidney stones Osteoarthritis Post traumatic stress disorder Syncope Surgical History History of appendectomy History of section X 2 History of cholecystectomy History of colonoscopy History of dilatation and curettage ABLATION History of laparoscopy X 5 History of lithotripsy History of tooth extraction History of total abdominal hysterectomy and bilateral salpingo-oophorectomy Family History Grandmother Family history of diabetes mellitus Family/Other Family history of diabetes mellitus Grandfather Family hx of colon cancer Other No family history of adverse response to anesthesia Social History Smoking Status: Current every day smoker Tobacco Type: Cigarettes Cigarettes Per Day: 20 a day; Second Hand Exposure: Yes (parents smoked); Hx Alcohol Use: Yes Alcohol type: wine and hard liquor Hx Substance Use: Yes (smokes 3 times a week) Last Used Substance: Days (ago) Preferred Language: Argentine Communication Ability: Effective C Iron Worker Required: No Beliefs That Will Affect Care: None Current Living Situation: Other Current Living Situation Comment: Lives with 2 roommates Feels Safe at Home: Yes Assistive Devices: Glasses and Nebulizer Review of Systems A total of 10 systems reviewed and were otherwise negative Physical Exam Vital Signs Vital Signs - 24 hr 12/17/19 22:18 12/17/19 22:58 12/17/19 23:12 Temperature 36.8 C Temperature Source Oral Pulse Rate 86 Pulse Rate [Bilateral Apical] 72 Pulse Rhythm Regular Pulse Strength Normal Respiratory Rate 18 18 Respiratory Effort / Characteristics Non-Labored Spontaneous Respiratory Depth Normal Respiratory Pattern Regular Blood Pressure 133/90 Blood Pressure [Left Arm] 130/83 Blood Pressure Mean 104 Blood Pressure Mean [Left Arm] 98 Blood Pressure Position Sitting Blood Pressure Position [Left Arm] Pulse Oximetry 95 98 97 Oxygen Delivery Method Room Air Room Air Sepsis Recent Fever Within 48 Hours No Sepsis New/Unexplained Change in Mental Status No Sepsis Action Taken by Nursing No Action Required 12/18/19 00:11 12/18/19 01:24 12/18/19 02:31 Temperature Temperature Source Pulse Rate Pulse Rate [Bilateral Apical] 79 73 72 Pulse Rhythm Pulse Strength Respiratory Rate 20 18 20 Respiratory Effort / Characteristics Respiratory Depth Respiratory Pattern Blood Pressure Blood Pressure [Left Arm] 136/87 138/89 138/89 Blood Pressure Mean Blood Pressure Mean [Left Arm] 103 105 105 Blood Pressure Position Blood Pressure Position [Left Arm] Sitting Pulse Oximetry 98 98 97 Oxygen Delivery Method Room Air Room Air Room Air Sepsis Recent Fever Within 48 Hours Sepsis New/Unexplained Change in Mental Status Sepsis Action Taken by Nursing VITALS: Vitals are noted on the nurse's note and reviewed by myself. Vital signs stable. GENERAL: White female ambulating without difficulties, in no acute distress, nondiaphoretic, well-developed well-nourished. SKIN: Capillary reflex less than 2 seconds. HEENT: Normocephalic. PERRLA. EOMI. Nares patent. Mucous membranes moist. Neck is supple without nuchal rigidity. HEART: Regular rate and rhythm LUNGS: Clear to auscultation bilaterally without wheezes, rales or rhonchi. No retractions or accessory muscle use. ABDOMEN: Positive bowel sounds x 4. Normal tympanic percussion. Soft, nontender, without masses or organomegaly. Dennison sign negative. No guarding or rebound tenderness. MUSCULOSKELETAL: No gross musculoskeletal defects. No thoracic or lumbar tenderness on exam. 5-5 strength throughout. No pitting edema. NEURO: Patient was alert and oriented to person place and time. Normal sensation to light and sharp touch. No focal neurological deficits. Course Administered Medications Discontinued Medications Diclofenac Sodium (Diclofenac Sod 1% Gel 100 Gm Tube) 2 gm EXT NOW STA Stop: 12/18/19 01:36 Last Admin: 12/18/19 01:50 Dose: 2 gm Documented by: [id number] Diphenhydramine HCl (Diphenhydramine 50 Mg/Ml Vial) 12.5 mg IV NOW STA Stop: 12/17/19 22:47 Last Admin: 12/17/19 23:08 Dose: 12.5 mg Documented by: [id number] Sodium Chloride (Nss) 500 mls @ 999 mls/hr IV .Q31M ANNALEE Stop: 12/17/19 23:30 Last Infusion: 12/17/19 23:31 Dose: 0 mls/hr Documented by: [id number] Admin: 12/17/19 23:08 Dose: 999 mls/hr Documented by: [id number] Acetaminophen (Ofirmev) 1,000 mg in 100 mls @ 400 mls/hr IV NOW STA Stop: 12/18/19 00:15 Last Infusion: 12/18/19 00:27 Dose: 0 mls/hr Documented by: [id number] Admin: 12/18/19 00:10 Dose: 400 mls/hr Documented by: [id number] Ketorolac Tromethamine (Ketorolac Tromethamine 15 Mg/Ml Vial) 10 mg IV NOW STA Stop: 12/17/19 22:47 Last Admin: 12/17/19 23:08 Dose: 10 mg Documented by: [id number] Metoclopramide HCl (Metoclopramide Hcl Inj 5 Mg/Ml 2 Ml Vial) 10 mg IV NOW STA Stop: 12/17/19 22:47 Last Admin: 12/17/19 23:08 Dose: 10 mg Documented by: [id number] Medical Decision Making Medical Records Attestation: I reviewed the patient's medical records. Home Medications Current Medication List: was personally reviewed by me Laboratory Data Attestation: I reviewed the patient's lab results. Result diagrams: 12/17/19 23:05 12/17/19 23:05 Lab Results 12/17/19 12/17/19 12/18/19 Range/Units 23:05 23:05 01:20 WBC 10.41 (4.8-10.8) K/uL RBC 4.11 L (4.2-5.4) M/uL Hgb 12.8 (12.0-16.0) g/dL Hct 37.6 (37-47) % MCV 91.5 (80-100) fL MCH 31.1 (25-34) pg MCHC 34.0 (32-36) g/dL RDW Std Deviation 44.1 (36.4-46.3) fL RDW Coeff of Tolu 13.2 (11.5-14.5) % Plt Count 179 (130-400) K/uL MPV 11.1 H (7.4-10.4) fL Immature Gran % (Auto) 0.1 % Neut % (Auto) 53.5 % Lymph % (Auto) 37.8 % Tillman % (Auto) 4.7 % Eos % (Auto) 3.4 % Baso % (Auto) 0.5 % Neut # (Auto) 5.58 (1.4-6.5) K/uL Lymph # (Auto) 3.93 H (1.2-3.4) K/uL Tillman # (Auto) 0.49 (0.11-0.59) K/uL Eos # (Auto) 0.35 (0-0.5) K/uL Baso # (Auto) 0.05 (0-0.2) K/uL Immature Gran # (Auto) 0.01 (0.00-0.02) K/uL Sodium 141 (136-145) mmol/L Potassium 3.5 (3.5-5.1) mmol/L Chloride 112 H (98-107) mmol/L Carbon Dioxide 25 (21-32) mmol/L Anion Gap 4.0 (3-11) BUN 13 (7-18) mg/dl Creatinine 0.99 (0.6-1.2) mg/dl Est Cr Clr Drug Dosing 66.6 ml/min Est GFR ( Amer) 74.9 Est GFR (Non-Af Amer) 64.6 BUN/Creatinine Ratio 13.1 (10-20) Glucose 67 L (70-99) mg/dl POC Glucose (70-99) mg/dl Calcium 8.8 (8.5-10.1) mg/dl Magnesium 1.9 (1.8-2.4) mg/dl Total Bilirubin 0.2 (0.2-1) mg/dl AST 10 L (15-37) U/L ALT 14 (12-78) U/L Alkaline Phosphatase 76 (45-117) U/L Total Creatine Kinase 56 (26-192) U/L Troponin I < 0.015 (0-0.045) ng/ml Total Protein 6.6 (6.4-8.2) gm/dl Albumin 3.5 (3.4-5.0) gm/dl Globulin 3.1 (2.5-4.0) gm/dl Albumin/Globulin Ratio 1.1 (0.9-2) Lipase 95 (73-393) U/L TSH 0.433 (0.300-4.500) uIu/ml Urine Color Yellow Urine Appearance Clear (Clear) Urine pH 6.0 (4.5-7.5) Ur Specific [place] 1.010 (1.000-1.030) Urine Protein Negative (Negative) Urine Glucose (UA) Negative (Negative) Urine Ketones Negative (Negative) Urine Blood Negative (Negative) Urine Nitrite Negative (Negative) Urine Bilirubin Negative (Negative) Urine Urobilinogen Negative (Negative) Ur Leukocyte Esterase Trace H (Negative) Urine WBC (Auto) 1-5 (0-5) /hpf Urine RBC (Auto) 0-4 (0-4) /hpf U Hyaline Cast (Auto) 0 (0-5) /lpf U Epithel Cells (Auto) 0-5 (0-5) /lpf Urine Bacteria (Auto) Negative (Negative) 12/18/19 Range/Units 01:35 WBC (4.8-10.8) K/uL RBC (4.2-5.4) M/uL Hgb (12.0-16.0) g/dL Hct (37-47) % MCV (80-100) fL MCH (25-34) pg MCHC (32-36) g/dL RDW Std Deviation (36.4-46.3) fL RDW Coeff of Tolu (11.5-14.5) % Plt Count (130-400) K/uL MPV (7.4-10.4) fL Immature Gran % (Auto) % Neut % (Auto) % Lymph % (Auto) % Tillman % (Auto) % Eos % (Auto) % Baso % (Auto) % Neut # (Auto) (1.4-6.5) K/uL Lymph # (Auto) (1.2-3.4) K/uL Tillman # (Auto) (0.11-0.59) K/uL Eos # (Auto) (0-0.5) K/uL Baso # (Auto) (0-0.2) K/uL Immature Gran # (Auto) (0.00-0.02) K/uL Sodium (136-145) mmol/L Potassium (3.5-5.1) mmol/L Chloride (98-107) mmol/L Carbon Dioxide (21-32) mmol/L Anion Gap (3-11) BUN (7-18) mg/dl Creatinine (0.6-1.2) mg/dl Est Cr Clr Drug Dosing ml/min Est GFR ( Amer) Est GFR (Non-Af Amer) BUN/Creatinine Ratio (10-20) Glucose (70-99) mg/dl POC Glucose 96 (70-99) mg/dl Calcium (8.5-10.1) mg/dl Magnesium (1.8-2.4) mg/dl Total Bilirubin (0.2-1) mg/dl AST (15-37) U/L ALT (12-78) U/L Alkaline Phosphatase (45-117) U/L Total Creatine Kinase (26-192) U/L Troponin I (0-0.045) ng/ml Total Protein (6.4-8.2) gm/dl Albumin (3.4-5.0) gm/dl Globulin (2.5-4.0) gm/dl Albumin/Globulin Ratio (0.9-2) Lipase (73-393) U/L TSH (0.300-4.500) uIu/ml Urine Color Urine Appearance (Clear) Urine pH (4.5-7.5) Ur Specific [place] (1.000-1.030) Urine Protein (Negative) Urine Glucose (UA) (Negative) Urine Ketones (Negative) Urine Blood (Negative) Urine Nitrite (Negative) Urine Bilirubin (Negative) Urine Urobilinogen (Negative) Ur Leukocyte Esterase (Negative) Urine WBC (Auto) (0-5) /hpf Urine RBC (Auto) (0-4) /hpf U Hyaline Cast (Auto) (0-5) /lpf U Epithel Cells (Auto) (0-5) /lpf Urine Bacteria (Auto) (Negative) Imaging Data Attestation: I personally reviewed and interpreted this imaging study as follows: MDM Narrative Prior records/ancillary studies reviewed and summarized above. Nursing notes reviewed. The patient's history was concerning for generalized pain. Differential diagnosis: Etiologies such as acute on chronic pain, metabolic, infection, hypo/hyperglycemia, electrolyte abnormalities, cardiac sources, intracerebral event, toxicologic, neurologic, as well as others were entertained. Physical examination: As above. ER treatment provided: IV Lock An order was placed for continuous cardiac monitoring. The monitor shows a rate of 60-100 with a sinus rhythm. Toradol, Reglan, Benadryl, APAP On reassessment the patient felt better. Diagnostics interpretation by me: ECG: Normal sinus, T waves in the anterolateral leads, normal intervals, EKG compared to prior EKG with new T waves present interpreted by myself EKG ordered for weakness I think arrhythmia is unlikely. EKG shows normal sinus rhythm with no interval abnormalities such as QT prolongation or WPW. There are no findings to suggest Brugada syndrome. Cardiac monitoring in the emergency department reveals no tachycardic or bradycardic dysrhythmia. Hypertrophic cardiomyopathy was considered but there are no clear historical elements pointing toward this. EKG is not suggestive. The QRS voltage is not extremely large and there are no suggestive Q waves. The labs: Hypoglycemia and the patient was fed and repeat blood sugar is improved No worrisome leukocytosis Imaging studies: US VENOUS BILATERAL LOWER EXTREMITIES: Negative for bilateral lower extremity DVT Radiologist: Tremaine Aquino MD Consultation: A consultation was placed with the hospitalist, Dr Choudhary. The case was discussed and diagnostics were reviewed. The patient was evaluated in the ER for further treatment. Exam and history seem consistent with intractable pain and abnormal EKG. Patient still moderate amount of pain. Medicine was consulted. She will be evaluated for possible admission. By the evaluation outlined above emergent etiologies such as electrolyte abnormalities, intracerebral event, toxologic, neurologic, abnormalities blood glucose, metabolic, as well as others were deemed relatively unlikely. The pt informed about the findings as listed above. All questions were answered and pleased with the treatment. The chart was completed utilizing [employer] Speech voice recognition software. Grammatical errors, random word insertions, pronoun errors, and incomplete sentences are an occassional consequence of this system due to software limitations, ambient noise, and hardware issues. Any formal questions or concerns about the content, text, or information contained within the body of this dictation should be directly addressed to the physician supply chain assistant for clarification. Impression & Plan Abnormal ECG, Intractable back pain Discharge Plan Visit Data Chief Complaint: Back Injury/Pain Stated Complaint: LOWER BACK PAIN ED Provider: Anuj Quesada ED Midlevel Provider: Katiana Camacho Discharge Problem: Abnormal ECG, Intractable back pain Patient Disposition: Being Evaluated by Hospitalist Condition: Good Forms Stand Alone Forms: [facility] [employer] Labs Prescriptions Prescriptions: No Action venlafaxine [Effexor XR] 150 mg Capsule,Extended Release 24hr 150 mg PO QAM RF: 0 omeprazole 40 mg Capsule,Delayed Release(Dr/Ec) 40 mg PO QAM RF: 0 buspirone 10 mg Tablet 20 mg PO BID RF: 0 lisinopril 10 mg Tablet 5 mg PO QAM RF: 0 topiramate [Topamax] 100 mg Tablet 100 mg PO BID RF: 0 trazodone 150 mg Tablet 150 mg PO HS RF: 0 gabapentin 800 mg tablet 800 mg PO TID RF: 0 quetiapine [Seroquel XR] 400 mg Tablet Extended Release 24 Hr 400 mg PO HS RF: 0 ipratropium-albuterol 0.5 mg-3 mg(2.5 mg base)/3 mL Solution For Nebulization 3 ml INHALATION QID PRN (Reason: Shortness Of Breath Or Wheezing) RF: 0 albuterol sulfate 90 mcg/actuation HFA aerosol inhaler 1 puff INHALATION Q4H PRN (Reason: Shortness Of Breath Or Wheezing) RF: 0 venlafaxine [Effexor XR] 75 mg capsule,extended release 24hr 75 mg PO QAM RF: 0 duloxetine 30 mg capsule,delayed release(DR/EC) 30 mg PO HS RF: 0 Referrals Referrals: Nestor Blanco MD [Primary Care Provider] -
[2019-12-17] MEDS ORDERED: SODIUM CHLORIDE 0.9% 500 ML IV SCH (23:00)
[2019-12-17 23:34] LABS: Basophils # (auto) 0.05 K/uL (0-0.2); Basophils % (auto) 0.5 %; Eosinophils # (auto) 0.35 K/uL (0-0.5); Eosinophils % (auto) 3.4 %; Hematocrit (blood only) 37.6 % (37-47); Hemoglobin 12.8 g/dL (12.0-16.0); Immature Granulocytes # (auto) 0.01 K/uL (0.00-0.02); Immature Granulocytes % (auto) 0.1 %; Lymphocytes # (auto) 3.93 K/uL (1.2-3.4); Lymphocytes % (auto) 37.8 %; Mean Corpuscular Hemoglobin 31.1 pg (25-34); Mean Corpuscular Volume 91.5 fL (80-100); Mean Platelet Volume 11.1 fL (7.4-10.4); Monocytes # (auto) 0.49 K/uL (0.11-0.59); Monocytes % (auto) 4.7 %; Neutrophils # (auto) 5.58 K/uL (1.4-6.5); Neutrophils % (auto) 53.5 %; Platelet Count 179 K/uL (130-400); RDW Coefficient of Variation 13.2 % (11.5-14.5); RDW Standard Deviation 44.1 fL (36.4-46.3); Red Blood Count 4.11 M/uL (4.2-5.4); White Blood Count 10.41 K/uL (4.8-10.8)
[2019-12-17 23:48] LABS: Alanine Aminotransferase 14 U/L (12-78); Albumin Level 3.5 gm/dl (3.4-5.0); Aspartate Aminotransferase 10 U/L (15-37); BUN Creatinine Ratio 13.1 (10-20); Blood Urea Nitrogen 13 mg/dl (7-18); Calcium 8.8 mg/dl (8.5-10.1); Carbon Dioxide 25 mmol/L (21-32); Chloride 112 mmol/L (98-107); Creatinine Clr Calc Pharmacy 66.6 ml/min; Est GFR (African American) 74.9; Est GFR (Non-African American) 64.6; Glucose 67 mg/dl (70-99); Magnesium 1.9 mg/dl (1.8-2.4); Potassium 3.5 mmol/L (3.5-5.1); Sodium 141 mmol/L (136-145)
[2019-12-17 23:58] LABS: Albumin Globulin Ratio 1.1 (0.9-2); Alkaline Phosphatase 76 U/L (45-117); Bilirubin,Total 0.2 mg/dl (0.2-1); Creatine Kinase 56 U/L (26-192); Globulin 3.1 gm/dl (2.5-4.0); Thyroid Stimulating Hormone 0.433 uIu/ml (0.300-4.500); Total Protein 6.6 gm/dl (6.4-8.2); Troponin I < 0.015 ng/ml (0-0.045)
[2019-12-18] MEDS ORDERED: ACETAMINOPHEN 1,000 MG/100 ML VIAL IV STA (00:01)
[2019-12-18] MEDS ORDERED: DICLOFENAC SOD 1% GEL 100 GM TUBE EXT STA (01:35)
[2019-12-18 01:45] LABS: Appearance Urine Clear (Clear); Bacteria Urine Automated Negative (Negative); Bilirubin Urine Negative (Negative); Blood Urine Negative (Negative); Cast Urine Automated 0 /lpf (0-5); Color Urine Yellow; Epithelial Cell Urine Auto 0-5 /lpf (0-5); Glucose Urine UA Negative (Negative); Ketones Urine Negative (Negative); Leukocyte Esterase Urine Trace (Negative); Nitrite Urine Negative (Negative); Protein Urine Negative (Negative); RBC Urine Automated 0-4 /hpf (0-4); Urobilinogen Urine Negative (Negative)
[2019-12-18 02:07] LABS: Lipase 95 U/L (73-393)
--- NOTE | 2019-12-18 03:11 | History & Physical Report ---
Date of Service December 18, 2019 Assessment & Plan (1) Abnormal ECG: EKG with new T wave inversions in leads V1 through V3. The patient will be admitted to telemetry for serial cardiac enzymes, serial EKG's, cardiac rhythm monitoring and a 2-D echocardiogram with Dopplers. Hold lisinopril. Aspirin 81 mg daily. Present on Admission?: Yes (2) HTN (hypertension): Hold lisinopril Present on Admission?: Yes (3) Fibromyalgia: Fibromyalgia/anxiety/depression- Patient is on complicated regimen: Buspirone, duloxetine, gabapentin, Seroquel XR, Topamax, trazodone and venlafaxine. Her symptoms today may be related to fibromyalgia flare, brought on by increased work at home when she was cleaning. Will order Lyme, anaplasmosis, coxsackie B virus and parvovirus titers, due to potential additive cardiac issues. Present on Admission?: Yes (4) Depression: See above Present on Admission?: Yes (5) Anxiety: See above Present on Admission?: Yes (6) Dyslipidemia: Check a fasting lipid panel and hemoglobin A1c. Present on Admission?: Yes History of Present Illness Chief Complaint: The patient presents to the emergency department with new complaint of precordial chest pain, and ongoing generalized body pain which is worse now due to cleaning around her house. Primary Care Provider: Nestor Blanco MD The patient is a 54-year-old female with a past medical history including hypertension, depression, anxiety, dyslipidemia, IBS, moderate COPD, neuropathy, dependent edema, left-sided renal colic and chronic generalized body pains. She reports that she been cleaning around the house, which brought on a new complaint of precordial chest pain, and brought on a worsening of her chronic generalized body pains. She has not had any recent changes in medications. She denies any recent travels or sick exposures. Allergies Allergy/AdvReac Type Severity Reaction Status Date / Time amoxicillin Allergy Severe Anaphylaxis Verified 12/18/19 01:47 Tetracyclines Allergy Severe Anaphylaxis Verified 12/18/19 01:47 morphine AdvReac Severe stomach Verified 12/18/19 01:47 cramps Home Medications Home Medications Medication Instructions Recorded Confirmed Type buspirone 20 mg PO BID 10/27/17 12/18/19 History lisinopril 5 mg PO QAM 10/27/17 12/18/19 History omeprazole 40 mg PO QAM 10/27/17 12/18/19 History topiramate [Topamax] 100 mg PO BID 10/27/17 12/18/19 History venlafaxine [Effexor XR] 150 mg PO QAM 10/27/17 12/18/19 History trazodone 150 mg PO HS 12/14/17 12/18/19 History gabapentin 800 mg PO TID 04/18/18 12/18/19 History quetiapine [Seroquel XR] 400 mg PO HS 04/18/18 12/18/19 History duloxetine 30 mg PO HS 07/24/18 12/18/19 History albuterol sulfate 1 puff INHALATION Q4H PRN 07/11/19 12/18/19 History ipratropium-albuterol 3 ml INHALATION QID PRN 07/11/19 12/18/19 History venlafaxine [Effexor XR] 75 mg PO QAM 12/18/19 12/18/19 History Past Med/Surg History Medical History (Updated 12/18/19 @ 04:14 by Brandon Grijalva MD) Anxiety Bipolar disorder Cardiac murmur Chronic obstructive pulmonary disease Depression Endometriosis Fibromyalgia GERD (gastroesophageal reflux disease) Hyperlipidemia Hypertension Insomnia Kidney stones Osteoarthritis Post traumatic stress disorder Syncope Surgical History History of appendectomy History of section X 2 History of cholecystectomy History of colonoscopy History of dilatation and curettage ABLATION History of laparoscopy X 5 History of lithotripsy History of tooth extraction History of total abdominal hysterectomy and bilateral salpingo-oophorectomy Family History Grandmother Family history of diabetes mellitus Family/Other Family history of diabetes mellitus Grandfather Family hx of colon cancer Other No family history of adverse response to anesthesia Social History Smoking Status: Current every day smoker Tobacco Type: Cigarettes Cigarettes Per Day: 20 a day; Second Hand Exposure: Yes (parents smoked); Hx Alcohol Use: Yes Alcohol type: wine and hard liquor Hx Substance Use: Yes (smokes 3 times a week) Last Used Substance: Days (ago) Preferred Language: [place] Citizen Communication Ability: Effective Wire Harness Assembler Required: No Beliefs That Will Affect Care: None Current Living Situation: Other Current Living Situation Comment: Lives with 2 roommates Feels Safe at Home: Yes Assistive Devices: Glasses and Nebulizer Review of Systems Review of Systems: The patient denies palpitations, cough, sore throat, fevers, chills, sweats, nausea, vomiting, diarrhea , constipation, abdominal pain, pelvic pain, blood in urine or stool, dysuria, urinary frequency or urgency, lightheadedness, dizziness, headache, memory loss, loss of consciousness, rash, abnormal bruising or bleeding, imbalance, focal weakness, in arms or legs, or night sweats. The review of systems is otherwise negative other than for that already noted above, and at least 10 systems have been reviewed. Physical Exam Physical Exam: The patient is awake, alert and oriented 3, normocephalic and atraumatic, lying in bed and in mild generalized distress. HEENT--PERRL, EOMI, mucous membranes and oropharynx normal. Neck--supple. No JVD. No bruits. Thyroid normal, trachea midline, no adenopathy . Heart--normal S1 and S2. No murmurs, rubs or gallops. Lungs--clear bilaterally, no respiratory distress, no accessory muscle use. Abdomen--normal bowel sounds and soft. Nontender. Nondistended. Extremities--no cyanosis or clubbing. No edema. Dermatologic--normal skin turgor, normal color, no abnormal lymph nodes, no rash. Neurologic--cranial nerves II through XII grossly intact. Rheumatologic--ROM limited due to generalized pains and fatigue Psychiatric--normal affect. Results & Data Results & Data ([facility]) Vital Signs (Past 12 Hours) Vital Signs Temp Pulse Pulse Resp BP BP Pulse Ox 12/18/19 02:31 72 20 138/89 97 12/18/19 01:24 73 18 138/89 98 12/18/19 00:11 79 20 136/87 98 12/17/19 23:12 72 18 130/83 97 12/17/19 22:58 98 12/17/19 22:18 98.2 F 86 18 133/90 95 Laboratory Results Laboratory Results WBC 10.41 K/uL (4.8-10.8) 12/17/19 23:05 RBC 4.11 M/uL (4.2-5.4) L 12/17/19 23:05 Hgb 12.8 g/dL (12.0-16.0) 12/17/19 23:05 Hct 37.6 % (37-47) 12/17/19 23:05 MCV 91.5 fL (80-100) 12/17/19 23:05 MCH 31.1 pg (25-34) 12/17/19 23:05 MCHC 34.0 g/dL (32-36) 12/17/19 23:05 RDW Std Deviation 44.1 fL (36.4-46.3) 12/17/19 23:05 RDW Coeff of Tolu 13.2 % (11.5-14.5) 12/17/19 23: Plt Count 179 K/uL (130-400) 12/17/19 23:05 MPV 11.1 fL (7.4-10.4) H 12/17/19 23:05 Immature Gran % (Auto) 0.1 % 12/17/19 23:05 Neut % (Auto) 53.5 % 12/17/19 23:05 Lymph % (Auto) 37.8 % 12/17/19 23:05 [place] % (Auto) 4.7 % 12/17/19 23:05 Eos % (Auto) 3.4 % 12/17/19 23:05 Baso % (Auto) 0.5 % 12/17/19 23:05 Neut # (Auto) 5.58 K/uL (1.4-6.5) 12/17/19 23:05 Lymph # (Auto) 3.93 K/uL (1.2-3.4) H 12/17/19 23:05 [place] # (Auto) 0.49 K/uL (0.11-0.59) 12/17/19 23:05 Eos # (Auto) 0.35 K/uL (0-0.5) 12/17/19 23:05 Baso # (Auto) 0.05 K/uL (0-0.2) 12/17/19 23:05 Immature Gran # (Auto) 0.01 K/uL (0.00-0.02) 12/17/19 23:05 Sodium 141 mmol/L (136-145) 12/17/19 23:05 Potassium 3.5 mmol/L (3.5-5.1) 12/17/19 23:05 Chloride 112 mmol/L (98-107) H 12/17/19 23:05 Carbon Dioxide 25 mmol/L (21-32) 12/17/19 23:05 Anion Gap 4.0 (3-11) 12/17/19 23:05 BUN 13 mg/dl (7-18) 12/17/19 23:05 Creatinine 0.99 mg/dl (0.6-1.2) 12/17/19 23:05 Est Cr Clr Drug Dosing 66.6 ml/min 12/17/19 23:05 Est GFR ( Amer) 74.9 12/17/19 23:05 Est GFR (Non-Af Amer) 64.6 12/17/19 23:05 BUN/Creatinine Ratio 13.1 (10-20) 12/17/19 23:05 Glucose 67 mg/dl (70-99) L 12/17/19 23:05 POC Glucose 96 mg/dl (70-99) 12/18/19 01:35 Calcium 8.8 mg/dl (8.5-10.1) 12/17/19 23:05 Magnesium 1.9 mg/dl (1.8-2.4) 12/17/19 23:05 Total Bilirubin 0.2 mg/dl (0.2-1) 12/17/19 23:05 AST 10 U/L (15-37) L 12/17/19 23:05 ALT 14 U/L (12-78) 12/17/19 23:05 Alkaline Phosphatase 76 U/L (45-117) 12/17/19 23:05 Total Creatine Kinase 56 U/L (26-192) 12/17/19 23:05 Troponin I < 0.015 ng/ml (0-0.045) 12/17/19 23:05 Total Protein 6.6 gm/dl (6.4-8.2) 12/17/19 23:05 Albumin 3.5 gm/dl (3.4-5.0) 12/17/19 23:05 Globulin 3.1 gm/dl (2.5-4.0) 12/17/19 23:05 Albumin/Globulin Ratio 1.1 (0.9-2) 12/17/19 23:05 Lipase 95 U/L (73-393) 12/17/19 23:05 TSH 0.433 uIu/ml (0.300-4.500) 12/17/19 23:05 Urine Color Yellow 12/18/19 01:20 Urine Appearance Clear (Clear) 12/18/19 01:20 Urine pH 6.0 (4.5-7.5) 12/18/19 01:20 Ur Specific [place] 1.010 (1.000-1.030) 12/18/19 01:20 Urine Protein Negative (Negative) 12/18/19 01:20 Urine Glucose (UA) Negative (Negative) 12/18/19 01:20 Urine Ketones Negative (Negative) 12/18/19 01:20 Urine Blood Negative (Negative) 12/18/19 01:20 Urine Nitrite Negative (Negative) 12/18/19 01:20 Urine Bilirubin Negative (Negative) 12/18/19 01:20 Urine Urobilinogen Negative (Negative) 12/18/19 01:20 Ur Leukocyte Esterase Trace (Negative) H 12/18/19 01:20 Urine WBC (Auto) 1-5 /hpf (0-5) 12/18/19 01:20 Urine RBC (Auto) 0-4 /hpf (0-4) 12/18/19 01:20 U Hyaline Cast (Auto) 0 /lpf (0-5) 12/18/19 01:20 U Epithel Cells (Auto) 0-5 /lpf (0-5) 12/18/19 01:20 Urine Bacteria (Auto) Negative (Negative) 12/18/19 01:20 Code Status & VTE Plan Code Status Full code VTE Prophylaxis Plan VTE Prophylaxis will be ordered: Yes PG Care Time/CCT Total # of Minutes Spent Total Time Spent with Patient: Total time spent is greater than 50% in coordination of care (as documented) at patient's floor/unit and/or counseling patient: Coding Level of Care Code 77293 Initial Inpt Care Lvl 3 Diagnoses Abnormal ECG R94.31 HTN (hypertension) I10 Fibromyalgia M79.7 Depression F32.9 Anxiety F41.9 Dyslipidemia E78.5
[2019-12-18] MEDS ORDERED: MAGNESIUM HYDROXIDE SUSP 30 ML UDC PO PRN (05:14)
[2019-12-18] MEDS ORDERED: ONDANSETRON INJ 2 MG/ML 2 ML VIAL IV PRN (05:14)
[2019-12-18] MEDS ORDERED: ACETAMINOPHEN 325 MG TAB PO PRN (05:14)
[2019-12-18] MEDS ORDERED: ALBUT/IPRATROP 3MG/0.5MG NEB 3 ML VIAL INH PRN (05:14)
[2019-12-18] MEDS ORDERED: ALUMINUM/MAGNESIUM SUSP 30 ML UDC PO PRN (05:14)
[2019-12-18 06:17] LABS: Lyme Ab IgG w/WB Rflx Negative (Negative); Lyme Ab IgM w/WB Rflx Negative (Negative)
--- NOTE | 2019-12-18 07:32 | XRay Report ---
XR chest 1V portable CLINICAL HISTORY: weakness COMPARISON STUDY: Chest radiograph and chest CT October 12, 2019. FINDINGS: Lung volumes are normal. Minimal opacity along left heart border favors atelectasis. There is no pneumothorax or pleural effusion. Cardiac size is normal. Mediastinal contours are normal. Ther e is no evidence for pulmonary edema. IMPRESSION: No acute cardiopulmonary findings. ACT 112: Negative or not required by law. Electronically signed by: Jose Raul Cardona M.D. 12/18/2019 7:31 AM
[2019-12-18 07:36] LABS: Prothrombin Time 10.6 Seconds (9.0-12.0)
--- NOTE | 2019-12-18 08:11 | Ultrasound Report ---
ULTRASOUND BILATERAL LOWER EXTREMITY VENOUS CLINICAL HISTORY: Lower extremity pain and swelling. COMPARISON STUDY: Bilateral lower extremity venous ultrasound dated 06/09/2017. TECHNIQUE: Real-time, grayscale, and color Doppler sonography of the deep veins of the right and left lower extremity was performed from the inguinal crease to the calf. Compression and augmentation wer e utilized. FINDINGS: There is no sonographic evidence of deep venous thrombosis identified in the right or left lower extremity. The common femoral, superficial femoral, and popliteal veins are patent and normally compressible bilaterally. The greater saphenous vein and the profunda femoris vein at the junction w ith the common femoral vein are clear in both legs. The visualized calf veins are patent bilaterally. IMPRESSION: There is no sonographic evidence of deep venous thrombosis identified in the right or lef t lower extremity. ACT 112: Negative or not required by law. Electronically signed by: Tesfaye Brannon M.D. 12/18/2019 8:10 AM
--- NOTE | 2019-12-18 08:28 | XCELERA ---
[id number]
[2019-12-18] MEDS ORDERED: VENLAFAXINE HCL XR 75 MG CAPXR PO SCH (09:00)
[2019-12-18] MEDS ORDERED: ASPIRIN 81 MG ECTAB PO SCH (09:00)
[2019-12-18] MEDS ORDERED: VENLAFAXINE HCL XR 150 MG CAPXR PO SCH (09:00)
[2019-12-18] MEDS ORDERED: ENOXAPARIN INJ 40 MG/0.4 ML SYR SQ SCH (09:00)
[2019-12-18] MEDS ORDERED: PANTOprazole 40 MG TAB PO SCH (09:00)
[2019-12-18 09:09] LABS: BUN Creatinine Ratio 13.1 (10-20); Calcium 8.5 mg/dl (8.5-10.1); Creatinine Clr Calc Pharmacy 75.9 ml/min; Est GFR (African American) 88.8; Est GFR (Non-African American) 76.6; Magnesium 2.1 mg/dl (1.8-2.4); Potassium 3.6 mmol/L (3.5-5.1)
[2019-12-18] MEDS: GABAPENTIN 800 MG TAB PO SCH ×3 (09:34→20:59)
[2019-12-18] MEDS: TOPIRAMATE 100 MG TAB PO SCH ×2 (09:34→20:58)
[2019-12-18] MEDS: busPIRone 5 MG TAB PO SCH ×2 (09:34→20:59)
--- NOTE | 2019-12-18 11:49 | Electrocardiogram Report ---
Test Reason : Blood Pressure : / mmHG Vent. Rate : 075 BPM Atrial Rate : 075 BPM P-R Int : 160 ms QRS Dur : 090 ms QT Int : 370 ms P-R-T Axes : 058 072 033 degrees QTc Int : 413 ms Normal sinus rhythm T wave abnormality, consider anterior ischemia Abnormal ECG When compared with ECG of 12-OCT-2019 12:24, T wave inversion now evident in Anterior leads Confirmed by Dion Carney ([id number]) on 12/18/2019 11:48:59 AM Referred By: REFERRED SELF Confirmed By:Dion Carney
--- NOTE | 2019-12-18 12:56 | Cardiology Consultation ---
Date of Consultation December 18, 2019 Assessment & Plan (1) Chest pain: (2) Depression: (3) Anxiety: (4) Fibromyalgia: (5) Smoker: This patient's chest pain is somewhat atypical but it is brought on by emotional stress and she does have risk factors including smoking. Her resting echocardiogram had good acoustic windows. I would recommend that we proceed with dobutamine stress echocardiogram. Unfortunately, the patient did eat lunch today and therefore I would recommend that we keep her overnight and complete the study in the a.m. History of Present Illness Attending Physician: Jean Carlos David MD History of Present Illness This is a 54-year-old female with a history of anxiety, depression and fibromyalgia who was admitted for chest pain. She describes herself as being under extreme emotional distress due to problems with her elderly mother and not getting along with her stepfather. She is a smoker. She has no significant cardiac history at least from [facility]. The last few days she has been chest pain with activity. She describes her chest pain as the result of emotional distress. She has baseline shortness of breath which has not changed. She denies heart palpitations or tachycardia. Her cardiac markers on admission are negative. Her EKG shows some slight T wave inversions in the anterior precordial leads but is otherwise within normal limits. She had a resting echocardiogram this admission that shows no wall motion abnormalities and normal LV function. Allergies Allergy/AdvReac Type Severity Reaction Status Date / Time amoxicillin Allergy Severe Anaphylaxis Verified 12/18/19 01:47 Tetracyclines Allergy Severe Anaphylaxis Verified 12/18/19 01:47 morphine AdvReac Severe stomach Verified 12/18/19 01:47 cramps Home Medications Home Medications Medication Instructions Recorded Confirmed Type buspirone 20 mg PO BID 10/27/17 12/18/19 History lisinopril 5 mg PO QAM 10/27/17 12/18/19 History omeprazole 40 mg PO QAM 10/27/17 12/18/19 History topiramate [Topamax] 100 mg PO BID 10/27/17 12/18/19 History venlafaxine [Effexor XR] 150 mg PO QAM 10/27/17 12/18/19 History trazodone 150 mg PO HS 12/14/17 12/18/19 History gabapentin 800 mg PO TID 04/18/18 12/18/19 History quetiapine [Seroquel XR] 400 mg PO HS 04/18/18 12/18/19 History duloxetine 30 mg PO HS 07/24/18 12/18/19 History albuterol sulfate 1 puff INHALATION Q4H PRN 07/11/19 12/18/19 History ipratropium-albuterol 3 ml INHALATION QID PRN 07/11/19 12/18/19 History venlafaxine [Effexor XR] 75 mg PO QAM 12/18/19 12/18/19 History Patient History Medical History Anxiety Bipolar disorder Cardiac murmur Chronic obstructive pulmonary disease Depression Endometriosis Fibromyalgia GERD (gastroesophageal reflux disease) Hyperlipidemia Hypertension Insomnia Kidney stones Osteoarthritis Post traumatic stress disorder Syncope Surgical History History of appendectomy History of section X 2 History of cholecystectomy History of colonoscopy History of dilatation and curettage ABLATION History of laparoscopy X 5 History of lithotripsy History of tooth extraction History of total abdominal hysterectomy and bilateral salpingo-oophorectomy Family History Grandmother Family history of diabetes mellitus Family/Other Family history of diabetes mellitus Grandfather Family hx of colon cancer Other No family history of adverse response to anesthesia Social History Smoking Status: Current every day smoker Tobacco Type: Cigarettes Cigarettes Per Day: 10-12; Second Hand Exposure: Yes (parents smoked); Hx Alcohol Use: No Hx Substance Use: No Preferred Language: Slovenian Communication Ability: Effective Crozer Operator Required: No Beliefs That Will Affect Care: None Current Living Situation: Family Current Living Situation Comment: Lives with 2 roommates Other Information That Helps Us Care for You: No Feels Safe at Home: Yes Safety Concerns: Feels Safe At This Time Assistive Devices: None Review of Systems Review of Systems: All systems reviewed & are unremarkable except as noted in HPI & below Nothing additional to add. Physical Exam Physical Exam: General: no acute distress and stated age Head: normocephalic, no masses, lesions, tenderness or abnormalities Eyes: conjunctiva are pink and non-injected, sclera clear Neck: supple, no adenopathy, no bruits, normal jugular venous pulse, no hepatojugular reflux Chest: normal shape and normal respiratory effort Lungs: clear to auscultation and percussion Cardiac Exam: - regular rate & rhythm, no murmurs gallops or rubs - normal S1, normal S2 Pulses: 2(+) throughout Abdomen: abdomen soft, non-tender, no abnormal masses and no hepatosplenomegaly Musculoskeletal: no gait disturbance, no joint inflammation, no deforming arthritis Extremities: no edema and no cyanosis Neuro: grossly normal exam Results & Data ([facility]) Vital Signs (Past 12 Hours) Vital Signs Temp Pulse Pulse Resp BP Pulse Ox 12/18/19 11:38 36.8 C 68 18 155/97 H 98 12/18/19 08:00 67 12/18/19 07:56 36.6 C 65 18 157/90 H 98 12/18/19 04:56 72 12/18/19 04:54 36.8 C 70 16 142/89 H 98 12/18/19 04:37 65 20 138/88 96 12/18/19 03:28 70 20 118/82 97 12/18/19 02:31 72 20 138/89 97 12/18/19 01:24 73 18 138/89 98 Laboratory Results Laboratory Results - last 24 hr 12/17/19 12/17/19 12/17/19 23:05 23:05 23:05 WBC 10.41 RBC 4.11 L Hgb 12.8 Hct 37.6 MCV 91.5 MCH 31.1 MCHC 34.0 RDW Std Deviation 44.1 RDW Coeff of Tolu 13.2 Plt Count 179 MPV 11.1 H Immature Gran % (Auto) 0.1 Neut % (Auto) 53.5 Lymph % (Auto) 37.8 [place] % (Auto) 4.7 Eos % (Auto) 3.4 Baso % (Auto) 0.5 Neut # (Auto) 5.58 Lymph # (Auto) 3.93 H [place] # (Auto) 0.49 Eos # (Auto) 0.35 Baso # (Auto) 0.05 Immature Gran # (Auto) 0.01 PT INR Sodium 141 Potassium 3.5 Chloride 112 H Carbon Dioxide 25 Anion Gap 4.0 BUN 13 Creatinine 0.99 Est Cr Clr Drug Dosing 66.6 Est GFR ( Amer) 74.9 Est GFR (Non-Af Amer) 64.6 BUN/Creatinine Ratio 13.1 Glucose 67 L POC Glucose Calcium 8.8 Magnesium 1.9 Total Bilirubin 0.2 AST 10 L ALT 14 Alkaline Phosphatase 76 Total Creatine Kinase 56 Troponin I < 0.015 Total Protein 6.6 Albumin 3.5 Globulin 3.1 Albumin/Globulin Ratio 1.1 Lipase 95 TSH 0.433 Urine Color Urine Appearance Urine pH Ur Specific [place] Urine Protein Urine Glucose (UA) Urine Ketones Urine Blood Urine Nitrite Urine Bilirubin Urine Urobilinogen Ur Leukocyte Esterase Urine WBC (Auto) Urine RBC (Auto) U Hyaline Cast (Auto) U Epithel Cells (Auto) Urine Bacteria (Auto) A. phagocytophilum DNA Lyme Disease IgG Ab Negative Lyme Disease IgM Ab Negative [place] Type B(1) Ab [place] Type B(2) Ab [place] Type B(3) Ab [place] Type B(4) Ab [place] Type B(5) Ab [place] Type B(6) Ab Hepatitis C Ab Screen Parvovirus IgG Ab Index Parvovirus IgM Ab Index 12/17/19 12/17/19 12/18/19 23:05 23:05 01:20 WBC RBC Hgb Hct MCV MCH MCHC RDW Std Deviation RDW Coeff of Tolu Plt Count MPV Immature Gran % (Auto) Neut % (Auto) Lymph % (Auto) [place] % (Auto) Eos % (Auto) Baso % (Auto) Neut # (Auto) Lymph # (Auto) [place] # (Auto) Eos # (Auto) Baso # (Auto) Immature Gran # (Auto) PT INR Sodium Potassium Chloride Carbon Dioxide Anion Gap BUN Creatinine Est Cr Clr Drug Dosing Est GFR ( Amer) Est GFR (Non-Af Amer) BUN/Creatinine Ratio Glucose POC Glucose Calcium Magnesium Total Bilirubin AST ALT Alkaline Phosphatase Total Creatine Kinase Troponin I Total Protein Albumin Globulin Albumin/Globulin Ratio Lipase TSH Urine Color Yellow Urine Appearance Clear Urine pH 6.0 Ur Specific [place] 1.010 Urine Protein Negative Urine Glucose (UA) Negative Urine Ketones Negative Urine Blood Negative Urine Nitrite Negative Urine Bilirubin Negative Urine Urobilinogen Negative Ur Leukocyte Esterase Trace H Urine WBC (Auto) 1-5 Urine RBC (Auto) 0-4 U Hyaline Cast (Auto) 0 U Epithel Cells (Auto) 0-5 Urine Bacteria (Auto) Negative A. phagocytophilum DNA Pending Lyme Disease IgG Ab Lyme Disease IgM Ab [place] Type B(1) Ab Pending [place] Type B(2) Ab Pending [place] Type B(3) Ab Pending [place] Type B(4) Ab Pending [place] Type B(5) Ab Pending [place] Type B(6) Ab Pending Hepatitis C Ab Screen Neg Parvovirus IgG Ab Index Pending Parvovirus IgM Ab Index Pending 12/18/19 12/18/19 12/18/19 01:35 07:08 07:08 WBC RBC Hgb Hct MCV MCH MCHC RDW Std Deviation RDW Coeff of Tolu Plt Count MPV Immature Gran % (Auto) Neut % (Auto) Lymph % (Auto) [place] % (Auto) Eos % (Auto) Baso % (Auto) Neut # (Auto) Lymph # (Auto) [place] # (Auto) Eos # (Auto) Baso # (Auto) Immature Gran # (Auto) PT 10.6 INR 1.0 Sodium Potassium Chloride Carbon Dioxide Anion Gap BUN Creatinine Est Cr Clr Drug Dosing Est GFR ( Amer) Est GFR (Non-Af Amer) BUN/Creatinine Ratio Glucose POC Glucose 96 Calcium Magnesium Total Bilirubin AST ALT Alkaline Phosphatase Total Creatine Kinase Troponin I < 0.015 Total Protein Albumin Globulin Albumin/Globulin Ratio Lipase TSH Urine Color Urine Appearance Urine pH Ur Specific [place] Urine Protein Urine Glucose (UA) Urine Ketones Urine Blood Urine Nitrite Urine Bilirubin Urine Urobilinogen Ur Leukocyte Esterase Urine WBC (Auto) Urine RBC (Auto) U Hyaline Cast (Auto) U Epithel Cells (Auto) Urine Bacteria (Auto) A. phagocytophilum DNA Lyme Disease IgG Ab Lyme Disease IgM Ab [place] Type B(1) Ab [place] Type B(2) Ab [place] Type B(3) Ab [place] Type B(4) Ab [place] Type B(5) Ab [place] Type B(6) Ab Hepatitis C Ab Screen Parvovirus IgG Ab Index Parvovirus IgM Ab Index 12/18/19 07:12 WBC RBC Hgb Hct MCV MCH MCHC RDW Std Deviation RDW Coeff of Tolu Plt Count MPV Immature Gran % (Auto) Neut % (Auto) Lymph % (Auto) [place] % (Auto) Eos % (Auto) Baso % (Auto) Neut # (Auto) Lymph # (Auto) [place] # (Auto) Eos # (Auto) Baso # (Auto) Immature Gran # (Auto) PT INR Sodium 144 Potassium 3.6 Chloride 115 H Carbon Dioxide 25 Anion Gap 4.0 BUN 11 Creatinine 0.86 Est Cr Clr Drug Dosing 75.9 Est GFR ( Amer) 88.8 Est GFR (Non-Af Amer) 76.6 BUN/Creatinine Ratio 13.1 Glucose 85 POC Glucose Calcium 8.5 Magnesium 2.1 Total Bilirubin AST ALT Alkaline Phosphatase Total Creatine Kinase Troponin I Total Protein Albumin Globulin Albumin/Globulin Ratio Lipase TSH Urine Color Urine Appearance Urine pH Ur Specific [place] Urine Protein Urine Glucose (UA) Urine Ketones Urine Blood Urine Nitrite Urine Bilirubin Urine Urobilinogen Ur Leukocyte Esterase Urine WBC (Auto) Urine RBC (Auto) U Hyaline Cast (Auto) U Epithel Cells (Auto) Urine Bacteria (Auto) A. phagocytophilum DNA Lyme Disease IgG Ab Lyme Disease IgM Ab [place] Type B(1) Ab [place] Type B(2) Ab [place] Type B(3) Ab [place] Type B(4) Ab [place] Type B(5) Ab [place] Type B(6) Ab Hepatitis C Ab Screen Parvovirus IgG Ab Index Parvovirus IgM Ab Index Medications Administered Current Inpatient Medications Acetaminophen (Acetaminophen 325 Mg Tab) 650 mg PO Q4H PRN PRN Reason: Pain or Fever Stop: 01/17/20 05:13 Al Hydrox/Mg Hydrox/Simethicone (Aluminum/Magnesium Susp 30 Ml Udc) 15 ml PO Q4H PRN PRN Reason: Dyspepsia Stop: 01/17/20 05:13 Albuterol (Albut/Ipratrop 3mg/0.5mg Neb 3 Ml Vial) 3 ml INH QID PRN PRN Reason: Shortness Of Breath Or Wheezing Stop: 01/17/20 05:13 Aspirin (Aspirin 81 Mg Ectab) 81 mg PO QAM [facility] Stop: 01/17/20 08:59 Last Admin: 12/18/19 09:34 Dose: 81 mg Documented by: Buspirone HCl (Buspirone 5 Mg Tab) 20 mg PO BID [facility] Stop: 01/17/20 08:59 Last Admin: 12/18/19 09:34 Dose: 20 mg Documented by: Duloxetine HCl (Duloxetine Hcl 30 Mg Cap) 30 mg PO HS ANNALEE Stop: 01/17/20 20:59 Enoxaparin Sodium (Enoxaparin Inj 40 Mg/0.4 Ml Syr) 40 mg SQ Q24H ANNALEE Stop: 01/17/20 08:59 Last Admin: 12/18/19 09:35 Dose: 40 mg Documented by: Gabapentin (Gabapentin 800 Mg Tab) 800 mg PO TID ANNALEE Stop: 01/17/20 08:59 Last Admin: 12/18/19 09:34 Dose: 800 mg Documented by: Magnesium Hydroxide (Magnesium Hydroxide Susp 30 Ml Udc) 30 ml PO Q12H PRN PRN Reason: Constipation Stop: 01/17/20 05:13 Ondansetron HCl (Ondansetron Inj 2 Mg/Ml 2 Ml Vial) 4 mg IV Q6H PRN PRN Reason: Nausea Stop: 01/17/20 05:13 Pantoprazole Sodium (Pantoprazole 40 Mg Tab) 40 mg PO QAM [facility] Stop: 01/17/20 08:59 Last Admin: 12/18/19 09:34 Dose: 40 mg Documented by: Quetiapine Fumarate (Quetiapine Fumarate 200 Mg Tabcr) 400 mg PO HS [facility] Stop: 01/17/20 20:59 Topiramate (Topiramate 100 Mg Tab) 100 mg PO BID ANNALEE Stop: 01/17/20 08:59 Last Admin: 12/18/19 09:34 Dose: 100 mg Documented by: Trazodone HCl (Trazodone Hcl 50 Mg Tab) 150 mg PO HS [facility] Stop: 01/17/20 20:59 Venlafaxine HCl (Venlafaxine Hcl Xr 75 Mg Capxr) 75 mg PO QAM ANNALEE Stop: 01/17/20 08:59 Last Admin: 12/18/19 09:35 Dose: 75 mg Documented by: Venlafaxine HCl (Venlafaxine Hcl Xr 150 Mg Capxr) 150 mg PO QAM [facility] Stop: 01/17/20 08:59 Last Admin: 12/18/19 09:35 Dose: 150 mg Documented by:
--- NOTE | 2019-12-18 16:21 | Hospitalist Progress Note ---
Date of Service December 18, 2019 Assessment & Plan (1) Chest pain: Chest Pain: R/O ACS Risk factors: H/O HTN, HLP, Tobacco use disorder Troponin:Negative EKG shows: T wave inversion in anterior leads CXR: No acute cardiopulmonary findings. ECHO: Mild concentric LVH. EF 65 to 70%. No regional wall motion abnormalities. Trace pericardial effusion without signs of tamponade. Trend serial cardiac enzymes, repeat EKG, fasting lipid panel in AM Start Aspirin 81mg daily Planned for Stress test in AM NPO after midnight Appreciate Cardiology Input Hold metoprolol for stress test. H/O complex regional pain syndrome--RLE Reports B/L Leg Pain No significant edema on exam Requests PCP for Lasix PRN Venous Doppler:There is no sonographic evidence of deep venous thrombosis identified in the right or left lower extremity. Hypertension BP slightly elevated Likely situational Resume metoprolol as able May need to add antihypertensive medications as needed COPD No signs of exacerbation Chest x-ray as above Continue home inhalers Bipolar disorder Generalized anxiety disorder Chronic insomnia Continue home medications Follows with Dr. Urbano as outpatient Currently refuses inpatient psychiatric evaluation. Tobacco use disorder Counseled to quit smoking Dyslipidemia Continues statin DVT Px: Heparin SQ Code Status Full Code Disposition Expected discharge home when medically stable Admission and Anticipated Discharge Date Admission Date: December 18, 2019 Subjective Patient is seen and examined at bedside Reports chest pain, dyspnea on exertion which he attributes to anxiety Also reports chronic cough and leg pain Denies dizziness, nausea, vomiting, abdominal pain Discussed with cardiology today Offers no other complaints Review of Systems Review of Systems: All systems reviewed & are unremarkable except as noted in HPI & below Physical Exam Physical Exam: Physical Exam: Vitals signs as noted above General Appearance:Moderately built and nourished, no apparent distress Head: normocephalic, Atraumatic Eyes: normal inspection, EOMI Neck: supple, Trachea midline Respiratory/Chest: Normal breath sounds, CTA Cardiovascular: S1, S2, No murmur Abdomen/GI:Soft, Non tender, Bowel sounds present Chest: Mild tender with palpation Extremities/Musculoskelatal:normal inspection, no edema Neurologic/Psych:AAOX3, grossly no focal neurological deficits Skin: normal color, warm Results & Data Results & Data ([facility]) Vital Signs (Past 12 Hours) Vital Signs Temp Pulse Pulse Resp BP Pulse Ox 12/18/19 15:32 36.8 C 67 18 157/96 H 97 11/10/20 11:38 36.8 C 68 18 155/97 H 98 12/18/19 08:00 67 12/18/19 07:56 36.6 C 65 18 157/90 H 98 12/18/19 04:56 72 12/18/19 04:54 36.8 C 70 16 142/89 H 98 12/18/19 04:37 65 20 138/88 96 Laboratory Results Short CBC 12/17/19 Range/Units 23:05 WBC 10.41 (4.8-10.8) K/uL Hgb 12.8 (12.0-16.0) g/dL Hct 37.6 (37-47) % Plt Count 179 (130-400) K/uL BMP 12/17/19 12/18/19 23:05 07:12 Sodium 141 144 Potassium 3.5 3.6 Chloride 112 H 115 H Carbon Dioxide 25 25 BUN 13 11 Creatinine 0.99 0.86 Glucose 67 L 85 Calcium 8.8 8.5 Cardiac Enzymes 12/17/19 12/18/19 12/18/19 Range/Units 23:05 07:08 14:59 Total Creatine Kinase 56 (26-192) U/L Troponin I < 0.015 < 0.015 < 0.015 (0-0.045) ng/ml Liver Function 12/17/19 Range/Units 23:05 Total Bilirubin 0.2 (0.2-1) mg/dl AST 10 L (15-37) U/L ALT 14 (12-78) U/L Alkaline Phosphatase 76 (45-117) U/L Albumin 3.5 (3.4-5.0) gm/dl Urine 12/18/19 Range/Units 01:20 Urine Color Yellow Urine Appearance Clear (Clear) Urine pH 6.0 (4.5-7.5) Ur Specific [place] 1.010 (1.000-1.030) Urine Protein Negative (Negative) Urine Glucose (UA) Negative (Negative)
[2019-12-18] MEDS ORDERED: ATORVASTATIN 10 MG TAB PO SCH (21:00)
[2019-12-18] MEDS ORDERED: DULoxetine HCL 30 MG CAP PO SCH (21:00)
[2019-12-18] MEDS ORDERED: traZODone HCL 50 MG TAB PO SCH (21:00)
[2019-12-18] MEDS ORDERED: QUEtiapine FUMARATE 200 MG TABCR PO SCH (21:00)
[2019-12-18] MEDS ORDERED: NICOTINE 14 MG/24 HR PATCH TD SCH (21:20)
[2019-12-19 06:44] LABS: Hematocrit (blood only) 39.3 % (37-47); Hemoglobin 13.1 g/dL (12.0-16.0); Mean Corpuscular Hemoglobin 30.8 pg (25-34); Mean Corpuscular Hgb Conc 33.3 g/dL (32-36); Mean Corpuscular Volume 92.5 fL (80-100); Mean Platelet Volume 10.8 fL (7.4-10.4); Platelet Count 155 K/uL (130-400); RDW Coefficient of Variation 13.4 % (11.5-14.5); RDW Standard Deviation 45.6 fL (36.4-46.3); Red Blood Count 4.25 M/uL (4.2-5.4); White Blood Count 5.78 K/uL (4.8-10.8)
[2019-12-19 07:09] LABS: Albumin Level 3.2 gm/dl (3.4-5.0); BUN Creatinine Ratio 12.2 (10-20); Calcium 8.8 mg/dl (8.5-10.1); Creatinine Clr Calc Pharmacy 71.6 ml/min; Est GFR (African American) 82.9; Est GFR (Non-African American) 71.5; Magnesium 2.3 mg/dl (1.8-2.4); Potassium 3.7 mmol/L (3.5-5.1)
[2019-12-19 07:13] LABS: Phosphorus 3.3 mg/dl (2.5-4.9)
[2019-12-19] MEDS ORDERED: ATROPINE SULFATE 0.1 MG/ML 10ML SYR IV ONE (08:37)
[2019-12-19] MEDS ORDERED: METOPROLOL TARTRATE 1 MG/ML VIAL IV ONE (08:37)
[2019-12-19] MEDS ORDERED: DOBUTamine HCL 12.5 MG/ML 20 ML VIAL IV ONE (08:37)
[2019-12-19] MEDS ORDERED: METOPROLOL SUCC 25MG EXT REL TAB PO SCH (09:00)
[2019-12-19] MEDS ORDERED: FLUTICASONE/VILANTEROL 200/25MCG 14 PUFFS/INHALER INH SCH (09:00)
[2019-12-19] MEDS ORDERED: HEPARIN SOD 5,000 UNIT/0.5 ML VIAL SQ SCH (09:00)
--- NOTE | 2019-12-19 18:32 | Communication Note ---
Date of Service: December 19, 2019 Patient opted to leave the hospital against medical advice before she was seen by the undersigned.
--- NOTE | 2019-12-19 18:32 | Discharge Summary ---
Date of Service Date of Admission: 12/18/19 Date of Discharge: 12/19/19 Admission HPI Per Admitting Provider The patient is a 54-year-old female with a past medical history including hypertension, depression, anxiety, dyslipidemia, IBS, moderate COPD, neuropathy, dependent edema, left-sided renal colic and chronic generalized body pains. She reports that she been cleaning around the house, which brought on a new complaint of precordial chest pain, and brought on a worsening of her chronic generalized body pains. She has not had any recent changes in medications. She denies any recent travels or sick exposures. Principal Diagnosis chest pain, noncardiac Discharge Data Allergies Allergy/AdvReac Type Severity Reaction Status Date / Time amoxicillin Allergy Severe Anaphylaxis Verified 12/18/19 01:47 Tetracyclines Allergy Severe Anaphylaxis Verified 12/18/19 01:47 morphine AdvReac Severe stomach Verified 12/18/19 01:47 cramps Consultations 12/18/19 01:35 ED Decision to Admit Stat 12/18/19 05:14 Consult Case Management - Discharge Planning Routine 12/18/19 08:37 Consult Cardiology Routine Ordered Studies 12/17/19 22:48 US venous doppler [facility] Urgent Hospital Course (1) Chest pain: 54 YO F with history of hypertension, dyslipidemia, smoking. Presented to ED with chest pain. Initial EKG showed NSR 75/min, inverted / biphasic T-waves inferiorly and anterolaterally. Rest echo showed mild LVH, normal LV wall motion and function. Serial troponins negative. LDL-c = 155. Dobutamine stress echo did not show any evidence of stress-induced ischemia. Ongoing risk factor modification. (2) Discharge planning issues: Patient opted to leave the hospital AMA before assessment and discharge process could be completed. Primary care follow-up with Dr. Zavaleta. Total Time Total Time Spent Total Time Spent (In Minutes): 0 Discharge Plan Discharge Items Reason For Visit: CP, ABN EKG, GENERALIZED BODY PAINS Condition on Discharge: Good Follow-up/Referrals: Katie Colbert MD [Physician] - 12/26/19 11:00 am Medications and DC Order Prescriptions: No Action venlafaxine [Effexor XR] 150 mg Capsule,Extended Release 24hr 150 mg PO QAM RF: 0 omeprazole 40 mg Capsule,Delayed Release(Dr/Ec) 40 mg PO QAM RF: 0 buspirone 10 mg Tablet 20 mg PO BID RF: 0 lisinopril 10 mg Tablet 5 mg PO QAM RF: 0 topiramate [Topamax] 100 mg Tablet 100 mg PO BID RF: 0 trazodone 150 mg Tablet 150 mg PO HS RF: 0 gabapentin 800 mg tablet 800 mg PO TID RF: 0 quetiapine [Seroquel XR] 400 mg Tablet Extended Release 24 Hr 400 mg PO HS RF: 0 ipratropium-albuterol 0.5 mg-3 mg(2.5 mg base)/3 mL Solution For Nebulization 3 ml INHALATION QID PRN (Reason: Shortness Of Breath Or Wheezing) RF: 0 albuterol sulfate 90 mcg/actuation HFA aerosol inhaler 1 puff INHALATION Q4H PRN (Reason: Shortness Of Breath Or Wheezing) RF: 0 venlafaxine [Effexor XR] 75 mg capsule,extended release 24hr 75 mg PO QAM RF: 0 atorvastatin 10 mg tablet 10 mg PO HS RF: 0 metoprolol succinate 25 mg Tablet Extended Release 24 Hr 12.5 mg PO DAILY RF: 0 fluticasone propion-salmeterol [Advair Diskus] 250-50 mcg/dose blister with device 1 inh INHALATION BID RF: 0 duloxetine 30 mg capsule,delayed release(DR/EC) 30 mg PO HS RF: 0 Admission Data Admit Date/Time: 12/18/19 04:04 Attending Provider: Michael Molina Admit Provider: Brandon Grijalva Primary Care Provider: Nestor Blanco Other Providers: Brandon Grijalva ; Babar Mendez ; Jean Carlos David Other Interventions: Discharge Summary Assessment (RN) Last Done: 12/19/19 10:45
--- NOTE | 2019-12-20 08:54 | Electrocardiogram Report ---
Test Reason : Blood Pressure : / mmHG Vent. Rate : 069 BPM Atrial Rate : 069 BPM P-R Int : 150 ms QRS Dur : 084 ms QT Int : 398 ms P-R-T Axes : 047 063 025 degrees QTc Int : 426 ms Normal sinus rhythm with sinus arrhythmia Nonspecific T wave abnormality Abnormal ECG When compared with ECG of 17-DEC-2019 22:56, No significant change was found Confirmed by Dion Carney ([id number]) on 12/20/2019 8:54:07 AM Referred By: REFERRED SELF Confirmed By:Dion Carney
[2019-12-23 05:47] LABS: Coxsackie B1 <1:8 (<1:8); Coxsackie B2 <1:8 (<1:8); Coxsackie B3 <1:8 (<1:8); Coxsackie B4 <1:8 (<1:8); Coxsackie B5 <1:8 (<1:8); Coxsackie B6 <1:8 (<1:8); Parvovirus IgG 0.2 (<0.9); Parvovirus IgM 0.1 (<0.9)
== END 2019-12-19 11:38 | disposition left against medical advice (07) | DRG 313 ==
LOC: ED 22:13 → SUATTDRO 12-18 04:04 → 2E 12-18 04:04 → INTOOBSV 12-18 04:04 → 2E 12-18 04:41